=== PATIENT | female | born 1935 | race Caucasian/White ===

== ENCOUNTER 2017-10-20 15:22 | Inpatient (IN) | payer MEDICARE, OTHER, SELFPAY ==
[2017-10-20] VITALS (11 sets, daily range): BP systolic 179–243; BP diastolic 78–116; PULSE 64–92; RESP 14–21; TEMP 36.7–36.8; O2SAT 95–96; BMI 36.8; BMI 35.9
--- NOTE | 2017-10-20 15:53 | EKG12_ITS ---
Test Reason : Blood Pressure : / mmHG Vent. Rate : 065 BPM Atrial Rate : 065 BPM P-R Int : 158 ms QRS Dur : 082 ms QT Int : 400 ms P-R-T Axes : 062 022 009 degrees QTc Int : 416 ms Normal sinus rhythm Normal ECG Confirmed by IVANA SAUNDERS ([id number]), business editor JAZZ JOSHI ([id number] on 10/23/2017 2:27:54 PM Referred By: ALIE Confirmed By:IVANA SAUNDERS
--- NOTE | 2017-10-20 15:53 | CT_ITS ---
STUDY: CT BRAIN WITHOUT CONTRAST REASON FOR EXAM: Female, 82 years old. Hypertension. Headache. Visual changes. RADIATION DOSAGE (If Supplied By Facility): CTDIvol = ( 44.99 ) mGy, DLP = ( 779.24 ) mGycm TECHNIQUE: Transaxial CT imaging of the brain was performed without administration of intravenous contrast material. Individualized dose optimization techniques were used for this CT. COMPARISON: None. FINDINGS: Normal soft tissue structures. Normal calvarium. There is mild cerebral atrophy with widening of the extra-axial spaces and ventricular dilatation. There are areas of decreased attenuation within the white matter tracts of the supratentorial brain, consistent with microvascular disease changes. Normal basal ganglia and thalami. Normal brainstem. Normal cerebellum. There is no intracranial hemorrhage. There are no findings of an acute ischemic infarction. Normal visualized paranasal sinuses. CT/Brain/Head without Contrast IMPRESSION: Chronic involutional changes of the brain. Electronically Signed: Charlie Mustafa MD at 16:40 EDT , Service support ,
[2017-10-20 16:09] LABS: Absolute Lymphocyte Count 1.62 X10^3/ul (0.83-4.51); Absolute Neutrophil Count 3.1 X10^3/uL (2.0-7.7); Basophil# 0.03 X10^3/uL; Basophil% 0.5 % (0-1); Eosinophil# 0.18 X10^3/uL; Eosinophils% 3.2 % (0-5); Hematocrit 43.9 % (37-47); Hemoglobin 14.2 g/dl (12.0-15.0); Lymphocyte # 1.62 X10^3/ul (4.0); Lymphocyte % 29.1 % (19-41); Mean Corp Hgb Conc 32.3 g/gl (32-36); Mean Corpuscular Hgb 31.2 pg (27.0-32.0); Mean Corpuscular Volume 96.5 fL (81-99); Mean Platelet Vol. 11.9 fl (6.2-12.0); Monocyte# 0.59 X10^3/uL; Monocyte% 10.6 % (0-10); Neutrophil # 3.13 X10^3/uL (2.7-7.7); Neutrophil % 56.4 % (47-70); Platelet Count 167 K/mm3 (150-450); RBC Distribution Width SD 45.2 fl (35.1-43.9); Red Blood Count 4.55 M/mm3 (4.2-5.4); White Blood Count 5.6 K/mm3 (4.4-11.0)
[2017-10-20 16:13] LABS: POSITIVE COUNT NO; POSITIVE DIFFERENTIAL NO; POSITIVE MORPHOLOGY NO
[2017-10-20 16:17] LABS: Anion Gap 6 (5-15); BUN 25 mg/dL (7-18); BUN/Creat Ratio 25.2 RATIO (10-20); Chloride 107 mmol/L (98-107); Creatinine, Serum 0.99 mg/dL (0.55-1.02); EST Glomerular Filtration Rate 57 mL/min (>60); Est Glom Filt Rate - Afr Amer 69 mL/min (>60); Estimated Creatinine Clearance 34.05 ml/min; Glucose 90 mg/dL (74-106); Potassium 4.4 mmol/L (3.5-5.1); Sodium Level 141 mmol/L (136-145)
[2017-10-20] MEDS: hydrALAZINE 20 MG/ML Vial 10 MG IV ×2 (17:15→18:57)
[2017-10-20 18:17] LABS: Bacteria 0 SEEN /hpf (None Seen); Mucous, Urine 0 SEEN /hpf (<or=2+); Red Blood Cells-Urine 0 SEEN /hpf (0-5); White Blood Cells 0 SEEN /hpf (0-5)
[2017-10-20 18:21] LABS: Color, Urine Yellow (Yellow); Glucose, Dipstick Normal (Normal); Ketone-Dipstick Negative (Negative); Leukocyte Esterase-Dipstick Negative /ul (Negative); Nitrite-Dipstick Negative (Negative); Occult Blood-Urine Negative /ul (Negative); Protein-Dipstick Negative (Negative); Urine Bilirubin Dipstick Negative (Negative); Urine Clarity Clear (Clear); Urine Urobilinogen Normal (Normal)
[2017-10-20 18:28] LABS: Squamous Epithelial Cells - UA 0-5 SEEN /hpf (5-10)
--- NOTE | 2017-10-20 18:48 | ED.VISSUMM ---
- ER Visit Summary Date of Service: 10/20/17 Chief Complaint: Seeing colors and elevated blood pressure History of Present Illness: The patient is a 82 F who went and saw Dr. Paul Jameson for seeing colors. He his ocular exam was unremarkable and does not explain her symptom of seeing colors. He was concerned because she had elevated blood pressure with a systolic of 215 and diastolic of 116. She does have history of hypertension. She has never had problems with her pressure being this elevated. She does complain of discomfort over the right brow. Her vision is altered secondary to the fact that her pupils were dilated. She has regular ears. She has trouble speech or swallowing. She denies paresthesia, anesthesia or motor weakness. She has trouble with walking or balance. He denies any chest pain or pain in her neck or back. Review of systems is otherwise negative. Please read written note. Physical Examination: Initial blood pressure was 202/116. Repeat at 1558 was 268/107. Pupils are dilated and nonreactive. TMs normal. Posterior pharynx with midline uvula without erythema or exudate. Trachea is midline without stridor. There is no carotid bruit. Heart is regular. There is no appreciable murmur gallop or rub. Lungs are clear to auscultation. There is no chest wall discomfort. Abdomen is soft nontender without palpable cell mass without bruit. She has distal palpable pulses upper and lower extremity and they are symmetric. Patient is alert and oriented ?3. Motor is 5 over 5. Sensory is intact. DTRs are symmetric with no clonus or Babinski sign. Cranial 2 through 12 are intact. Cerebellar testing is normal. Gait was not observed. There is no truncal ataxia. Test Results: CBC was obtained unremarkable. BMP is marked for BUN 25. EKG sinus rhythm of 65 with no evidence of LVH. Emergency Department Course and Treatment: Workup was undertaken to evaluate for endorgan injury which included a BMP, UA EKG and CBC. She was administered 10 mg approximately. Her blood pressure remained elevated. She received another 10 mg of Apresoline IV push. Her pressure remains elevated. The hospitalist was called for admission to the hospital. Treatment Plan: Continued monitoring and administration of IV meds for hypertensive urgency Disposition: Admit PCU stepdown Impression: 1. Hypertensive urgency 2. Ocular symptoms suspect secondary to elevated blood pressure This note was generated with [employer] software. It may contain incorrect words, spelling, and punctuation that were not noted in review of the chart prior to signing ED Disposition - Plan for ED Patient: Chief Complaint: Hypertension Referrals: Joshua Maynard [Primary Care Provider] -
--- NOTE | 2017-10-20 19:32 | PCM.HP.STD ---
Problem List (1) Hypertensive emergency Status: Acute (2) Hypertension Status: Chronic History of Present Illness Date of Admission: 10/20/17 Chief Complaint: visual changes The patient is a 82 year old F presents with visual changes in her right eye. Patient describes intermittently seeing rainbow colors in the right lateral eye visual field. Denies any headache but saw her tire finisher who evaluated her and saw nothing to suggest an optic involvement contributing to her visual changes. He did note that patient's blood pressure was 1-200s and sent the patient to the emergency room. Emergency room patient was in hypertensive with a systolic into the 260s. Patient received 3 rounds of hydralazine and has improved her blood pressure 222/80. Patient has never had blood pressure is elevated but this is both before. Patient states that with her primary care provider that she will go there and blood pressure being in the 160s but then improved to 140s thereafter upon recheck. Patient states that she has been compliant with her losartan and took it this morning. [] Past Medical History Past Medical History (Chronic Problems): Chronic Problems Hypertension (Chronic) Allergies Sulfa (Sulfonamide Antibiotics) Allergy (Verified 10/20/17 15:28) Itching Home Medications: Ambulatory Orders Medication Instructions Recorded B Cmplx 4/Vit D3/C/FA/Zinc Ox 1 each PO DAILY 10/20/17 [Vital-D Rx Tablet] Losartan Potassium [Losartan 100 mg PO DAILY 10/20/17 Potassium] Meloxicam [Mobic] 15 mg PO DAILY 10/20/17 Lives: Alone Smoking Status: Never smoker Tobacco Use: Non-smoker Alcohol: None Drugs: None - *Family History Paternal History Items: Heart Disease Review of Systems Constitutional: Denies: Chills, Fever, Weight Change Eyes: Reports: Vision Change. Denies: Blurred vision, Double vision HEENT: Denies: Head Aches, Sinus Congestion, Sinus Drainage Cardiovascular: Denies: Chest Pain, Edema Respiratory: Denies: Cough, Shortness of breath at rest, Sputum production Gastrointestinal: Denies: Abdominal Pain, Nausea, Vomiting Genitourinary: Denies: Dysuria Musculoskeletal: Denies: Joint Pain, Joint Tenderness Skin: Denies: Rash, Wounds Neurological: Denies: Numbness, Tingling, Focal weakness Psychiatric: Denies: Anxiety, Depression Hematologic/ Lymphatic: Denies: Easy Bruising, Easy Bleeding, Hx of blood clot VTE Information - Inpt Only VTE Present on Admission: No VTE Pharm Prophylaxis ordered?: Yes Patient Problems: Active and Suspected Problems Hypertensive emergency (Acute) - Physical Exam General: Alert, Cooperative, No apparent distress, Well developed, Well nourished HEENT: Atraumatic, Normocephalic, - - Right pupil nonreactive the patient did have a dilated earlier today. Left pupil is reactive. Oral: Moist Mucosa, No Gingival or Mucosal Lesions/ Ulcerations Neck: No Nodes, Thyroid Normal Size and Texture Lungs: Clear to auscultation, Normal air movement, No rhonchi, No wheeze Cardiovascular: Regular rate, Regular Rhythm, Normal S1, Normal S2, No murmurs Abdomen: Bowel Sounds Present, Soft, Non Tender, Non-Distended, No Hepato-splenomegaly Extremities: No clubbing, No cyanosis, No edema, No Calf Tenderness Skin: No rashes, No breakdown Psych/Mental Status: Normal Affect, Appropriate Vital Signs Temp Pulse Resp BP Pulse Ox 36.8 C 80 16 202/80 H 96 10/20/17 15:26 10/20/17 19:06 10/20/17 19:06 10/20/17 19:06 10/20/17 19:06 Oxygen Delivery Method Room Air Weight: 91.3 kg Body Mass Index (BMI) 36.8 Laboratory Tests Past 24 Hrs 10/20/17 10/20/17 10/20/17 15:58 15:58 18:00 WBC 5.6 RBC 4.55 Hgb 14.2 Hct 43.9 MCV 96.5 MCH 31.2 MCHC 32.3 RDW 13.0 RDW Differential 45.2 H Plt Count 167 MPV 11.9 Immature Gran % (Auto) 0.200 Neut % (Auto) 56.4 Lymph % (Auto) 29.1 [place] % (Auto) 10.6 H Eos % (Auto) 3.2 Baso % (Auto) 0.5 Absolute Neuts (auto) 3.1 Absolute Lymphs (auto) 1.62 Total Counted Not Reportable Sodium 141 Potassium 4.4 Chloride 107 Carbon Dioxide 28.0 Anion Gap 6 BUN 25 H Creatinine 0.99 Estim Creat Clear Calc 34.05 Est GFR (MDRD) Af Amer 69 Est GFR (MDRD) Non-Af 57 L BUN/Creatinine Ratio 25.2 H Glucose 90 Calcium 9.0 Urine Color Yellow Urine Clarity Clear Urine pH 7.0 Ur Specific [place] 1.010 Urine Protein Negative Urine Glucose (UA) Normal Urine Ketones Negative Urine Occult Blood Negative Urine Nitrite Negative Urine Bilirubin Negative Urine Urobilinogen Normal Ur Leukocyte Esterase Negative Urine RBC 0 SEEN Urine WBC 0 SEEN Ur Squamous Epith Cells 0-5 SEEN Urine Bacteria 0 SEEN Urine Mucus 0 SEEN Assessment/Plan Active and Suspected Problems Hypertensive emergency (Acute) 1. Hypertensive emergency Overall improved. Patient was having endorgan damage with the patient's visual changes which are currently improved. Patient has some blurred vision right now but that is due to the fact that she had her right eye dilated. Continue with the patient is losartan but also add hydrochlorothiazide 25 mg to which patient will receive this evening. Patient will have hydralazine as needed. 2. DVT prophylaxis with Lovenox 3. Advanced care planning: Asked patient if the event of cardiac arrest if she would want CPR, she said she did. The patient had respiratory failure which she wanted to be intubated and ventilator, she stated that she would, in the event of dysphagia if she would want a PEG tube and artificial nutrition, patient stated that she would want that if necessary. Therefore, patient is full CODE STATUS. This note was generated with [employer] dictation software. It may contain incorrect words, spelling, and punctuation that were not noted in checking the note before signing. Code Visit Inpatient E&M: 67513 Init Hosp L3
--- NOTE | 2017-10-20 19:40 | HP.PCM_ITS ---
Problem List (1) Hypertensive emergency Status: Acute (2) Hypertension Status: Chronic History of Present Illness Date of Admission: 10/20/17 Chief Complaint: visual changes The patient is a 82 year old F presents with visual changes in her right eye. Patient describes intermittently seeing rainbow colors in the right lateral eye visual field. Denies any headache but saw her ultrasound coordinator who evaluated her and saw nothing to suggest an optic involvement contributing to her visual changes. He did note that patient's blood pressure was 1-200s and sent the patient to the emergency room. Emergency room patient was in hypertensive with a systolic into the 260s. Patient received 3 rounds of hydralazine and has improved her blood pressure 222/80. Patient has never had blood pressure is elevated but this is both before. Patient states that with her primary care provider that she will go there and blood pressure being in the 160s but then improved to 140s thereafter upon recheck. Patient states that she has been compliant with her losartan and took it this morning. [] Past Medical History Past Medical History (Chronic Problems): Chronic Problems Hypertension (Chronic) Allergies Sulfa (Sulfonamide Antibiotics) Allergy (Verified 10/20/17 15:28) Itching Home Medications: Ambulatory Orders Medication Instructions Recorded B Cmplx 4/Vit D3/C/FA/Zinc Ox 1 each PO DAILY 10/20/17 [Vital-D Rx Tablet] Losartan Potassium [Losartan 100 mg PO DAILY 10/20/17 Potassium] Meloxicam [Mobic] 15 mg PO DAILY 10/20/17 Lives: Alone Smoking Status: Never smoker Tobacco Use: Non-smoker Alcohol: None Drugs: None - *Family History Paternal History Items: Heart Disease Review of Systems Constitutional: Denies: Chills, Fever, Weight Change Eyes: Reports: Vision Change. Denies: Blurred vision, Double vision HEENT: Denies: Head Aches, Sinus Congestion, Sinus Drainage Cardiovascular: Denies: Chest Pain, Edema Respiratory: Denies: Cough, Shortness of breath at rest, Sputum production Gastrointestinal: Denies: Abdominal Pain, Nausea, Vomiting Genitourinary: Denies: Dysuria Musculoskeletal: Denies: Joint Pain, Joint Tenderness Skin: Denies: Rash, Wounds Neurological: Denies: Numbness, Tingling, Focal weakness Psychiatric: Denies: Anxiety, Depression Hematologic/ Lymphatic: Denies: Easy Bruising, Easy Bleeding, Hx of blood clot VTE Information - Inpt Only VTE Present on Admission: No VTE Pharm Prophylaxis ordered?: Yes Patient Problems: Active and Suspected Problems Hypertensive emergency (Acute) - Physical Exam General: Alert, Cooperative, No apparent distress, Well developed, Well nourished HEENT: Atraumatic, Normocephalic, - - Right pupil nonreactive the patient did have a dilated earlier today. Left pupil is reactive. Oral: Moist Mucosa, No Gingival or Mucosal Lesions/ Ulcerations Neck: No Nodes, Thyroid Normal Size and Texture Lungs: Clear to auscultation, Normal air movement, No rhonchi, No wheeze Cardiovascular: Regular rate, Regular Rhythm, Normal S1, Normal S2, No murmurs Abdomen: Bowel Sounds Present, Soft, Non Tender, Non-Distended, No Hepato- splenomegaly Extremities: No clubbing, No cyanosis, No edema, No Calf Tenderness Skin: No rashes, No breakdown Psych/Mental Status: Normal Affect, Appropriate Vital Signs Temp Pulse Resp BP Pulse Ox 36.8 C 80 16 202/80 H 96 10/20/17 15:26 10/20/17 19:06 10/20/17 19:06 10/20/17 19:06 10/20/17 19:06 Oxygen Delivery Method Room Air Weight: 91.3 kg Body Mass Index (BMI) 36.8 Laboratory Tests Past 24 Hrs 10/20/17 10/20/17 10/20/17 15:58 15:58 18:00 WBC 5.6 RBC 4.55 Hgb 14.2 Hct 43.9 MCV 96.5 MCH 31.2 MCHC 32.3 RDW 13.0 RDW Differential 45.2 H Plt Count 167 MPV 11.9 Immature Gran % (Auto) 0.200 Neut % (Auto) 56.4 Lymph % (Auto) 29.1 [place] % (Auto) 10.6 H Eos % (Auto) 3.2 Baso % (Auto) 0.5 Absolute Neuts (auto) 3.1 Absolute Lymphs (auto) 1.62 Total Counted Not Reportable Sodium 141 Potassium 4.4 Chloride 107 Carbon Dioxide 28.0 Anion Gap 6 BUN 25 H Creatinine 0.99 Estim Creat Clear Calc 34.05 Est GFR (MDRD) Af Amer 69 Est GFR (MDRD) Non-Af 57 L BUN/Creatinine Ratio 25.2 H Glucose 90 Calcium 9.0 Urine Color Yellow Urine Clarity Clear Urine pH 7.0 Ur Specific [place] 1.010 Urine Protein Negative Urine Glucose (UA) Normal Urine Ketones Negative Urine Occult Blood Negative Urine Nitrite Negative Urine Bilirubin Negative Urine Urobilinogen Normal Ur Leukocyte Esterase Negative Urine RBC 0 SEEN Urine WBC 0 SEEN Ur Squamous Epith Cells 0-5 SEEN Urine Bacteria 0 SEEN Urine Mucus 0 SEEN Assessment/Plan Active and Suspected Problems Hypertensive emergency (Acute) 1. Hypertensive emergency * Overall improved. Patient was having endorgan damage with the patient's visual changes which are currently improved. Patient has some blurred vision right now but that is due to the fact that she had her right eye dilated. * Continue with the patient is losartan but also add hydrochlorothiazide 25 mg to which patient will receive this evening. * Patient will have hydralazine as needed. 2. DVT prophylaxis with Lovenox 3. Advanced care planning: Asked patient if the event of cardiac arrest if she would want CPR, she said she did. The patient had respiratory failure which she wanted to be intubated and ventilator, she stated that she would, in the event of dysphagia if she would want a PEG tube and artificial nutrition, patient stated that she would want that if necessary. Therefore, patient is full CODE STATUS. This note was generated with [employer] dictation software. It may contain incorrect words, spelling, and punctuation that were not noted in checking the note before signing. Code Visit Inpatient E&M: 96817 Init Hosp L3
[2017-10-20] MEDS: hydroCHLOROthiazide 25 MG Tablet PO (21:02)
[2017-10-20] MEDS: 0.9% NaCl Peripheral Flush Adult/Peds IV (21:09)
[2017-10-20] MEDS: Acetaminophen 325 MG Tablet 650 MG PO (23:09)
[2017-10-21] VITALS (17 sets, daily range): BP systolic 138–199; BP diastolic 65–106; PULSE 65–95; RESP 16–18; TEMP 36.7–37.1; O2SAT 93–96
--- NOTE | 2017-10-21 05:42 | NURSING ---
This RN reviewed student charting. This RN agrees with all charting done by student Iva Gunderson.
[2017-10-21 07:04] LABS: Anion Gap 7 (5-15); BUN 20 mg/dL (7-18); BUN/Creat Ratio 22.3 RATIO (10-20); Calcium,Total 8.9 mg/dL (8.5-10.1); Chloride 107 mmol/L (98-107); EST Glomerular Filtration Rate 64 mL/min (>60); Est Glom Filt Rate - Afr Amer 77 mL/min (>60); Estimated Creatinine Clearance 37.46 ml/min; Glucose 97 mg/dL (74-106); Sodium Level 141 mmol/L (136-145)
[2017-10-21] MEDS: Losartan Potassium 100 MG Tablet PO (08:26)
[2017-10-21] MEDS: Folic Acid/Vitamin B Comp W-C 1 Capsule 1 CAP PO (08:26)
[2017-10-21] MEDS: hydroCHLOROthiazide 25 MG Tablet PO (08:26)
[2017-10-21] MEDS: Enoxaparin 40 MG/0.4 ML Syringe SC (08:26)
[2017-10-21] MEDS: Acetaminophen 325 MG Tablet 650 MG PO ×2 (08:30→21:48)
[2017-10-21] MEDS: hydrALAZINE 20 MG/ML Vial 10 MG IV ×2 (09:30→21:48)
[2017-10-21] MEDS: 0.9% NaCl Peripheral Flush Adult/Peds IV ×2 (09:34→21:49)
--- NOTE | 2017-10-21 09:47 | CASEMGMT ---
CHART REVIEW: MARK Strata: 1 ADM Dx: Hypertensive Emergency Assessment: Per physician report, The patient is a 82 year old F presents with visual changes in her right eye. Patient describes intermittently seeing rainbow colors in the right lateral eye visual field. Pt saw her theatre instructor who evaluated her and noted that patient's blood pressure was systolic 200's. The patient was referred to [facility] ED and evaluated; found to be hypertensive with a systolic into the 260's. The patient received 3 rounds of hydralazine and improved her blood pressure 222/80. Patient states that she has been compliant with her losartan and took it the day of evaluation. Treatment Plan: Continue Lorsartan and add HCTZ 25 mg; hydralazine PRN Transition Planning/Care Coordination: Patient lives alone, is independent, and has family support. The patient follows with Dr. Joshua Maynard, PCP. Anticipate no transition planning needs. RN CM will continue to follow hospital course and will provide CM intervention should needs arise. Disposition Plan: Home TSANA Salcido, RN-BC, CCM
--- NOTE | 2017-10-21 10:34 | PCM.PROGNOTE ---
Patient Problems: Active and Suspected Problems Hypertensive urgency (Acute) Subjective: Chief complaint: Follow-up after admission for hypertensive urgency. Patient seen and examined. No acute events overnight. This morning, she feels better and she has no more headache or vision changes. Later this morning, I went back to see the patient the chief complaint of headache. She has no more vision changes. Her blood pressure was elevated again up to 190 systolic. Her other vital signs were stable. - Physical Exam General: Alert, Oriented x3, Cooperative, No apparent distress HEENT: Atraumatic, PERRLA, EOMI Oral: Moist Mucosa, No Gingival or Mucosal Lesions/ Ulcerations Neck: Supple, No JVD, Negative Carotid Bruits, Trachea Midline, Thyroid Normal Size and Texture Lungs: Clear to auscultation, Normal air movement, No rhonchi, No wheeze, No rales, Diminished Cardiovascular: Regular rate, Regular Rhythm, Normal S1, Normal S2, No murmurs Abdomen: Bowel Sounds Present, Soft, Non Tender, Non-Distended, No Hepato-splenomegaly Extremities: No clubbing, No cyanosis, No edema Skin: No rashes, No breakdown Lymphatic: No Cervical, Supraclavicular, or Inguinal Adenopathy Neurological: Cranial nerves II-XII grossly intact, Motor Exam 5/5 strength throughout Psych/Mental Status: Normal Affect, Appropriate, Alert and oriented to time, place, person, mood and affect Vital Signs Temp Pulse Resp BP Pulse Ox 98.4 F 86 18 143/65 H 94 10/21/17 10:31 10/21/17 10:31 10/21/17 10:31 10/21/17 10:31 10/21/17 10:31 Oxygen Delivery Method Room Air Weight: 196 lb 6.91 oz Body Mass Index (BMI) 35.9 Intake and Output for Last 24 Hours 10/19/17 10/20/17 10/21/17 23:59 23:59 23:59 Intake Total 340 / 340 Balance 340 / 340 Laboratory Tests Past 24 Hrs 10/20/17 10/20/17 10/21/17 21:16 23:09 02:42 Sodium Potassium Chloride Carbon Dioxide Anion Gap BUN Creatinine Estim Creat Clear Calc Est GFR (MDRD) Af Amer Est GFR (MDRD) Non-Af BUN/Creatinine Ratio Glucose Calcium Troponin I 0.04 0.05 0.06 10/21/17 06:10 Sodium 141 Potassium 4.0 Chloride 107 Carbon Dioxide 27.0 Anion Gap 7 BUN 20 H Creatinine 0.90 Estim Creat Clear Calc 37.46 Est GFR (MDRD) Af Amer 77 Est GFR (MDRD) Non-Af 64 BUN/Creatinine Ratio 22.3 H Glucose 97 Calcium 8.9 Troponin I Clinical Impression(s) from Imaging Studies Brain CT 10/20/17 15:53 IMPRESSION: Chronic involutional changes of the brain. Electronically Signed: Charlie Mustafa MD at 16:40 EDT , Service support , Medical Necessity - Tobacco Use Smoking Status: Never smoker Tobacco Use: Non-smoker Assessment/Plan Active and Suspected Problems Hypertensive urgency (Acute) This is an 82 years old female patient presented to the emergency room because of headache and vision changes, and she was found to have highly elevated blood pressure consistent with hypertensive urgency and there was no evidence of acute end organ damage such as acute stroke, DE, encephalopathy or acute kidney injury. #1 hypertensive urgency: Patient has been on losartan for at least 4-5 years. Usually, blood pressure is under reasonable control but not too high as during this admission. On admission, maximum blood pressure was 243/102. This morning, her pressure came down to around 150-160 systolic and the symptoms improved. She has no more headache or vision. Later this morning, her blood pressure started to go again and it was up to 199/91. She complains of headache again but no vision changes. CT scan brain showed no acute infarction or hemorrhage. EKG revealed normal sinus rhythm without evidence of acute ischemic changes. Troponin are negative. Her routine blood work was unremarkable, kidney function is normal. At this time, she is on losartan and HCTZ. She is on IV hydralazine as needed. Plan: Change HCTZ to 12.5 mg p.o. daily, start Norvasc 10 mg p.o. daily, continue losartan and IV hydralazine as needed. #2 hypertension: Blood pressure was elevated, has been fluctuating up and down. Plan as above. #3 DVT prophylaxis: Subcu Lovenox. This note was generated with [employer] software. It may contain incorrect words, spelling, and punctuation that were not noted in checking the note before signing. Code Visit Inpatient E&M: 84808 Subs Hosp L2
--- NOTE | 2017-10-21 10:37 | PN_ITS ---
Patient Problems: Active and Suspected Problems Hypertensive urgency (Acute) Subjective: Chief complaint: Follow-up after admission for hypertensive urgency. Patient seen and examined. No acute events overnight. This morning, she feels better and she has no more headache or vision changes. Later this morning, I went back to see the patient the chief complaint of headache. She has no more vision changes. Her blood pressure was elevated again up to 190 systolic. Her other vital signs were stable. - Physical Exam General: Alert, Oriented x3, Cooperative, No apparent distress HEENT: Atraumatic, PERRLA, EOMI Oral: Moist Mucosa, No Gingival or Mucosal Lesions/ Ulcerations Neck: Supple, No JVD, Negative Carotid Bruits, Trachea Midline, Thyroid Normal Size and Texture Lungs: Clear to auscultation, Normal air movement, No rhonchi, No wheeze, No rales, Diminished Cardiovascular: Regular rate, Regular Rhythm, Normal S1, Normal S2, No murmurs Abdomen: Bowel Sounds Present, Soft, Non Tender, Non-Distended, No Hepato- splenomegaly Extremities: No clubbing, No cyanosis, No edema Skin: No rashes, No breakdown Lymphatic: No Cervical, Supraclavicular, or Inguinal Adenopathy Neurological: Cranial nerves II-XII grossly intact, Motor Exam 5/5 strength throughout Psych/Mental Status: Normal Affect, Appropriate, Alert and oriented to time, place, person, mood and affect Vital Signs Temp Pulse Resp BP Pulse Ox 98.4 F 86 18 143/65 H 94 10/21/17 10:31 10/21/17 10:31 10/21/17 10:31 10/21/17 10:31 10/21/17 10:31 Oxygen Delivery Method Room Air Weight: 196 lb 6.91 oz Body Mass Index (BMI) 35.9 Intake and Output for Last 24 Hours 10/19/17 10/20/17 10/21/17 23:59 23:59 23:59 Intake Total 340 / 340 Balance 340 / 340 Laboratory Tests Past 24 Hrs 10/20/17 10/20/17 10/21/17 21:16 23:09 02:42 Sodium Potassium Chloride Carbon Dioxide Anion Gap BUN Creatinine Estim Creat Clear Calc Est GFR (MDRD) Af Amer Est GFR (MDRD) Non-Af BUN/Creatinine Ratio Glucose Calcium Troponin I 0.04 0.05 0.06 10/21/17 06:10 Sodium 141 Potassium 4.0 Chloride 107 Carbon Dioxide 27.0 Anion Gap 7 BUN 20 H Creatinine 0.90 Estim Creat Clear Calc 37.46 Est GFR (MDRD) Af Amer 77 Est GFR (MDRD) Non-Af 64 BUN/Creatinine Ratio 22.3 H Glucose 97 Calcium 8.9 Troponin I Clinical Impression(s) from Imaging Studies Brain CT 10/20/17 15:53 IMPRESSION: Chronic involutional changes of the brain. Electronically Signed: Charlie Mustafa MD at 16:40 EDT , Service support , Medical Necessity - Tobacco Use Smoking Status: Never smoker Tobacco Use: Non-smoker Assessment/Plan Active and Suspected Problems Hypertensive urgency (Acute) This is an 82 years old female patient presented to the emergency room because of headache and vision changes, and she was found to have highly elevated blood pressure consistent with hypertensive urgency and there was no evidence of acute end organ damage such as acute stroke, [place], encephalopathy or acute kidney injury. #1 hypertensive urgency: Patient has been on losartan for at least 4-5 years. Usually, blood pressure is under reasonable control but not too high as during this admission. On admission, maximum blood pressure was 243/102. This morning , her pressure came down to around 150-160 systolic and the symptoms improved. She has no more headache or vision. Later this morning, her blood pressure started to go again and it was up to 199/91. She complains of headache again but no vision changes. CT scan brain showed no acute infarction or hemorrhage. EKG revealed normal sinus rhythm without evidence of acute ischemic changes. Troponin are negative. Her routine blood work was unremarkable, kidney function is normal. At this time, she is on losartan and HCTZ. She is on IV hydralazine as needed. Plan: Change HCTZ to 12.5 mg p.o. daily, start Norvasc 10 mg p.o. daily, continue losartan and IV hydralazine as needed. #2 hypertension: Blood pressure was elevated, has been fluctuating up and down. Plan as above. #3 DVT prophylaxis: Subcu Lovenox. This note was generated with [employer]ation software. It may contain incorrect words, spelling, and punctuation that were not noted in checking the note before signing. Code Visit Inpatient E&M: 99010 Subs Hosp L2
[2017-10-21] MEDS: amLODIPine 10 MG Tablet PO (11:28)
[2017-10-22 03:00] VITALS: PULSE 76
[2017-10-22 04:15] VITALS: BP 154/76; PULSE 81; RESP 18; TEMP 36.8; O2SAT 93
[2017-10-22 06:54] VITALS: PULSE 71
--- NOTE | 2017-10-22 08:33 | PCM.DC ---
- Discharge Diagnoses Current Active Problems: Current Active and Chronic Problems Hypertensive urgency (Acute) Hypertension (Chronic) You will use the following diet at home:: Cardiac Your food should be the consistency of: Regular Discharge Activity: Return to Normal Activity Weight Bearing Status: Weight bearing as tolerated Call your doctor if you observe: Fever of 101 or Higher, Shortness of breath, Dizziness, Fainting spells, Swelling in the ankles, Chest pain, Increased palpitations (irregular heartbeat), Uncontrolled pain Instructions: Controlling High Blood Pressure, Taking Your Blood Pressure, Taking Amlodipine, Taking a Diuretic Allergies/Adverse Reactions: Allergies Sulfa (Sulfonamide Antibiotics) Allergy (Verified 10/20/17 15:28) Itching Medications to take at Discharge B Cmplx 4/Vit D3/C/FA/Zinc Ox [Vital-D Rx Tablet] 1 each PO DAILY 10/20/17 Losartan Potassium 100 mg PO DAILY 10/20/17 Meloxicam [Mobic] 15 mg PO DAILY 10/20/17 Amlodipine [Norvasc] 10 mg PO DAILY #30 tab 10/22/17 Hydrochlorothiazide 12.5 mg PO DAILY #30 cap 10/22/17 The following prescriptions were given: Amlodipine [Norvasc] 10 mg PO DAILY #30 tab Hydrochlorothiazide 12.5 mg PO DAILY #30 cap Primary Care Physician: Joshua Maynard [Primary Care Provider] - Please follow up with your Primary Care Physician in: 1 week.
[2017-10-22 09:25] VITALS: BP 159/85; PULSE 89; RESP 16; TEMP 36.8; O2SAT 93
[2017-10-22] MEDS: amLODIPine 10 MG Tablet PO (09:32)
[2017-10-22] MEDS: Losartan Potassium 100 MG Tablet PO (09:32)
[2017-10-22] MEDS: Enoxaparin 40 MG/0.4 ML Syringe SC (09:32)
[2017-10-22] MEDS: Folic Acid/Vitamin B Comp W-C 1 Capsule 1 CAP PO (09:32)
[2017-10-22] MEDS: HYDROCHLOROTHIAZIDE 12.5 MG CAPSULE PO (09:33)
--- NOTE | 2017-10-22 15:25 | PCM.DC.SUM ---
Discharge Date and Diagnosis - Problem List Patient Problems: Active and Suspected Problems Hypertensive urgency (Acute) Date of Admission: 10/20/17 Date of Discharge: 10/22/17 - Primary Discharge Diagnosis Active and Suspected Problems Hypertensive urgency (Acute) - Secondary Discharge Diagnosis Chronic Problems Hypertension (Chronic) Hospital Course and Treatment Imaging Results: Clinical Impression(s) from Imaging Studies Brain CT 10/20/17 15:53 IMPRESSION: Chronic involutional changes of the brain. Electronically Signed: Charlie Mustafa MD at 16:40 EDT , Service support , Operations: None Procedures: EKG Summary of Care Provided: Patient seen and examined on the day of discharge and appeared to be stable to be discharged home. She denies any more complaints. No headache or vision changes. Blood pressure under better control, other vital signs are stable. - Physical Exam General: Alert, Oriented x3, Cooperative, No apparent distress. HEENT: Atraumatic, PERRLA, EOMI. Neck: Supple, No JVD, Negative Carotid Bruits, Trachea Midline, Thyroid Normal. Lungs: Clear to auscultation, Normal air movement, No rhonchi, No wheeze, No rales. Cardiovascular: Regular rate, Regular Rhythm, Normal S1, Normal S2, PMI Normal. Abdomen: Bowel Sounds Present, Soft, Non Tender, Non-Distended, No Hepato-splenomegaly. Extremities: No clubbing, No cyanosis, No edema Skin: No rashes, No breakdown Neurological: Neuro grossly intact Hospital course: The patient is a 82 year old F admitted to the emergency room because of headache and vision changes and she was found to have hypertensive urgency. On admission, her blood pressure was as high as 243/102. There was no evidence of acute end organ damage. CT scan brain showed no acute stroke or hemorrhage. EKG revealed normal sinus rhythm without acute ischemic changes. Troponin was negative. Routine blood work was unremarkable. Kidney function was normal. She was admitted and treated with IV hydralazine as needed, continued on losartan and started on Norvasc and hydrochlorthiazide. Her blood pressure did improve and it came down to around 150 systolic. She has normal symptoms, normal headache or vision changes. Patient discharged home in a stable medical condition, discharged on losartan same dose before admission, started on Norvasc 10 mg p.o. daily, HCTZ 12.5 mg p.o. daily, Maria Dolores recommended to keep close eye on her blood pressure, check her blood pressure twice a day and follow-up with PCP in 1 week. Discharge Activity: Return to Normal Activity Weight Bearing Status: Weight bearing as tolerated Call your doctor if you observe: Fever of 101 or Higher, Shortness of breath, Dizziness, Fainting spells, Swelling in the ankles, Chest pain, Increased palpitations (irregular heartbeat), Uncontrolled pain Home Medications: Medications to take at Discharge B Cmplx 4/Vit D3/C/FA/Zinc Ox [Vital-D Rx Tablet] 1 each PO DAILY 10/20/17 Losartan Potassium 100 mg PO DAILY 10/20/17 Meloxicam [Mobic] 15 mg PO DAILY 10/20/17 Amlodipine [Norvasc] 10 mg PO DAILY #30 tab 10/22/17 Hydrochlorothiazide 12.5 mg PO DAILY #30 cap 10/22/17 Following Prescrptions Were Given to Patient: Amlodipine [Norvasc] 10 mg PO DAILY #30 tab Hydrochlorothiazide 12.5 mg PO DAILY #30 cap Primary Care Physician: Joshua Maynard [Primary Care Provider] - Please follow up with your Primary Care Physician in: 1 week. Please Follow Up With: Joshua Maynard Patient Instructions: Controlling High Blood Pressure, Taking a Diuretic, Taking Amlodipine, Taking Your Blood Pressure Disposition: Home Minutes spent on discharge:: 26 Patient Condition:: Stable Medical Necessity - Tobacco Use Smoking Status: Never smoker Tobacco Use: Non-smoker Meaningful Use Info Meaningful Use Diagnoses (Choose all that apply): None applicable Code Visit Inpatient E&M: 11664 Disch Hosp
--- NOTE | 2017-10-22 15:29 | DS.PCM_ITS ---
Discharge Date and Diagnosis - Problem List Patient Problems: Active and Suspected Problems Hypertensive urgency (Acute) Date of Admission: 10/20/17 Date of Discharge: 10/22/17 - Primary Discharge Diagnosis Active and Suspected Problems Hypertensive urgency (Acute) - Secondary Discharge Diagnosis Chronic Problems Hypertension (Chronic) Hospital Course and Treatment Imaging Results: Clinical Impression(s) from Imaging Studies Brain CT 10/20/17 15:53 IMPRESSION: Chronic involutional changes of the brain. Electronically Signed: Charlie Mustafa MD at 16:40 EDT , Service support , Operations: None Procedures: EKG Summary of Care Provided: Patient seen and examined on the day of discharge and appeared to be stable to be discharged home. She denies any more complaints. No headache or vision changes. Blood pressure under better control, other vital signs are stable. - Physical Exam General: Alert, Oriented x3, Cooperative, No apparent distress. HEENT: Atraumatic, PERRLA, EOMI. Neck: Supple, No JVD, Negative Carotid Bruits, Trachea Midline, Thyroid Normal. Lungs: Clear to auscultation, Normal air movement, No rhonchi, No wheeze, No rales. Cardiovascular: Regular rate, Regular Rhythm, Normal S1, Normal S2, PMI Normal. Abdomen: Bowel Sounds Present, Soft, Non Tender, Non-Distended, No Hepato- splenomegaly. Extremities: No clubbing, No cyanosis, No edema Skin: No rashes, No breakdown Neurological: Neuro grossly intact Hospital course: The patient is a 82 year old F admitted to the emergency room because of headache and vision changes and she was found to have hypertensive urgency. On admission, her blood pressure was as high as 243/102. There was no evidence of acute end organ damage. CT scan brain showed no acute stroke or hemorrhage. EKG revealed normal sinus rhythm without acute ischemic changes. Troponin was negative. Routine blood work was unremarkable. Kidney function was normal. She was admitted and treated with IV hydralazine as needed, continued on losartan and started on Norvasc and hydrochlorthiazide. Her blood pressure did improve and it came down to around 150 systolic. She has normal symptoms, normal headache or vision changes. Patient discharged home in a stable medical condition, discharged on losartan same dose before admission, started on Norvasc 10 mg p.o. daily, HCTZ 12.5 mg p.o. daily, Maria Dolores recommended to keep close eye on her blood pressure, check her blood pressure twice a day and follow -up with PCP in 1 week. Discharge Activity: Return to Normal Activity Weight Bearing Status: Weight bearing as tolerated Call your doctor if you observe: Fever of 101 or Higher, Shortness of breath, Dizziness, Fainting spells, Swelling in the ankles, Chest pain, Increased palpitations (irregular heartbeat), Uncontrolled pain Home Medications: Medications to take at Discharge B Cmplx 4/Vit D3/C/FA/Zinc Ox [Vital-D Rx Tablet] 1 each PO DAILY 10/20/17 Losartan Potassium 100 mg PO DAILY 10/20/17 Meloxicam [Mobic] 15 mg PO DAILY 10/20/17 Amlodipine [Norvasc] 10 mg PO DAILY #30 tab 10/22/17 Hydrochlorothiazide 12.5 mg PO DAILY #30 cap 10/22/17 Following Prescrptions Were Given to Patient: Amlodipine [Norvasc] 10 mg PO DAILY #30 tab Hydrochlorothiazide 12.5 mg PO DAILY #30 cap Primary Care Physician: Joshua Maynard [Primary Care Provider] - Please follow up with your Primary Care Physician in: 1 week. Please Follow Up With: Joshua Maynard Patient Instructions: Controlling High Blood Pressure, Taking a Diuretic, Taking Amlodipine, Taking Your Blood Pressure Disposition: Home Minutes spent on discharge:: 26 Patient Condition:: Stable Medical Necessity - Tobacco Use Smoking Status: Never smoker Tobacco Use: Non-smoker Meaningful Use Info Meaningful Use Diagnoses (Choose all that apply): None applicable Code Visit Inpatient E&M: 42007 Disch Hosp
== END 2017-10-22 10:50 | disposition home or self-care (01) | DRG 305 ==
LOC: ED 16:36 → PCU 20:06
PROVIDERS: Emergency Provider Emergency Medicine; Family Provider Family Medicine; PCP Family Medicine; Visit Provider Hospitalist
DX: I16.0 Hypertensive urgency (principal); R51 Headache; Z79.899 Other long term (current) drug therapy; I10 Essential (primary) hypertension
CPT/HCPCS: 36415; 70450; 80048; 81001; 84484; 85025; 93005; 99283; A4216

== ENCOUNTER → 2017-12-22 23:39 | Outpatient (CLI) | payer MEDICARE, OTHER, SELFPAY | PROVIDERS: Family Provider Family Medicine; PCP Family Medicine; Visit Provider Internal Medicine Cardiovascular Disease | DX: G47.10 Hypersomnia, unspecified (principal); G47.19 Other hypersomnia; R06.83 Snoring; I10 Essential (primary) hypertension; I34.0 Nonrheumatic mitral (valve) insufficiency; I35.0 Nonrheumatic aortic (valve) stenosis; I05.9 Rheumatic mitral valve disease, unspecified; I16.0 Hypertensive urgency | CPT/HCPCS: 95810 ==

== ENCOUNTER → 2017-12-24 09:59 | Outpatient (CLI) | payer MEDICARE, OTHER, SELFPAY ==
--- NOTE | 2017-12-24 10:05 | ECHOD_ITS ---
Reason For Study: Dyspnea/SOB Procedure This was a 2D Doppler, Color Flow transthoracic echocardiogram. Exam performed in department. Left Ventricle Normal size and thickness. The estimated ejection fraction is 65 %. Stage 1 diastolic dysfunction. No regional wall motion abnormalities noted. Right Ventricle Normal size and thickness. Normal systolic function. Atria Normal left atrium. Normal right atrium. Normal atrial septum. Bubble contrast study negative for right to left interatrial shunt. Mitral Valve Moderate diffuse mitral valve thickening. Severe mitral annular calcification extending into the posterior leaflet. Mild mitral valve stenosis. Peak transmitral valve gradient 8 mmHg. Mean transmitral valve gradient 2 mmHg. Trivial mitral valve insufficiency. Tricuspid Valve Normal tricuspid valve. Trivial tricuspid valve insufficiency. Right ventricular systolic pressure estimated to be 33 mmHg. Aortic Valve Trisinus/trileaflet aortic valve. Moderate diffuse aortic valve thickening. Mild aortic stenosis. Peak aortic valve gradient 25 mmHg. Mean aortic valve gradient 12 mmHg. Pulmonic Valve Normal pulmonic valve. Great Vessels Normal aortic root. Normal arch. Normal inferior vena cava. Inferior vena cava collapse with sniff. Pericardium/Pleural No pericardial effusion. Medication Performed a rapid injection of agitated mix of 9 cc saline and 1cc air to assess for atrial septal defect. MMode/2D Measurements & Calculations LVIDd: 4.2 cm IVSd: 1.1 cm LVOT diam: 2.0 cm LVIDs: 2.8 cm LVPWd: 0.98 cm LVOT area: 3.1 cm2 RVDd: 3.4 cm FS: 32.5 % Ao root diam: 3.2 cm LAV(MOD-bp): 53.9 ml LA A4 area: 15.6 cm2 LAV(MOD-bp) Indexed: 28.8 ml/m2 LAV(MOD-sp2): 62.1 ml LAV(MOD-sp4): 39.2 ml RA A4 area: 14.3 cm2 Time Measurements MV dec time: 0.27 sec Doppler Measurements & Calculations MV E max dhaval: 98.6 cm/sec Lat Peak E' Dhaval: 6.3 cm/sec Med Peak E' Dhaval: 4.2 cm/sec MV A max dhaval: 124.6 cm/sec E/E' lat: 15.6 E/E' med: 23.5 MV E/A: 0.79 MV V2 max: 138.2 cm/sec MV P1/2t max dhaval: 116.3 cm/sec Ao V2 max: 249.4 cm/sec MV max P.6 mmHg MV P1/2t: 122.9 msec Ao max P.9 mmHg MV V2 mean: 71.1 cm/sec MV dec slope: 277.0 cm/sec2 Ao V2 mean: 167.5 cm/sec MV mean P.4 mmHg MVA(P1/2t): 1.8 cm2 Ao mean P.3 mmHg MV V2 VTI: 52.1 cm Ao V2 VTI: 56.6 cm MVA(VTI): 1.6 cm2 FRANCISCO(I,D): 1.5 cm2 FRANCISCO(V,D): 1.5 cm2 LV V1 max: 117.2 cm/sec SV(LVOT): 82.3 ml PA V2 max: 77.6 cm/sec LV V1 max P.5 mmHg LV V1 mean P.7 mmHg LV V1 mean: 77.9 cm/sec LV V1 VTI: 26.5 cm TR max dhaval: 260.0 cm/sec TR max P.1 mmHg Interpretation Summary The estimated ejection fraction is 65 %. Stage 1 diastolic dysfunction. Bubble contrast study negative for right to left interatrial shunt. Trivial mitral valve insufficiency. Mild mitral valve stenosis. Trivial tricuspid valve insufficiency. Right ventricular systolic pressure estimated to be 33 mmHg. Mild aortic stenosis. There is no comparison study available. Ordering Physician: Graham Funes Referring Physician: Joshua Maynard Performed By: Mercedes Phelan RDCS, RVT
== END ==
PROVIDERS: Family Provider Family Medicine; PCP Family Medicine; Visit Provider Internal Medicine Cardiovascular Disease
DX: R06.83 Snoring (principal)
CPT/HCPCS: 93306; A4216

== ENCOUNTER → 2018-01-16 10:29 | Outpatient (CLI) | payer MEDICARE, OTHER, SELFPAY ==
--- NOTE | 2018-01-16 10:31 | STE_ITS ---
Reason For Study: HTN, Aortic Stenosis, SOB Stress Results Protocol: Modified Jay Protocol Maximum Predicted HR: 137 bpm Target HR: 116 bpm% Maximum Pred icted HR: 92 % DurationHeart Rate Stage (mm:ss) (bpm) BPCom ment Baseline 73 132/90 No Chest Pain Modified Jay Protocol Stage 0 3:00 11 4 156/84No Chest Pain; Mild Dyspnea Modified Jay Protocol Stage 1/2 1:30 12 6 / No Chest Pain; Moderate Dyspnea Recovery 70 128/86 No Chest Pain Stress Duration: 4:30 mm:ss Maximum Stress HR: 126 bpmM ETS: 3 Baseline Echocardiogram Findings The estimated ejection fraction is 65 %. Severe mitral annular calcification extending into the posterior leaflet. Stress Echo Wall motion Data Resting WMIntermediate WMStress WM Resting Wall Motion Wall Motion Stress No regional wall motion No regional wall motion abnormalities noted. abnormalities noted. EKG Data Normal intervals are noted. Interpretation Summary The estimated ejection fraction is 65 %. Normal, adequate, modified Jay treadmill echocardiogram. Negative for ischemia by EKG and echocardiographic criteria. No anginal symptoms noted. Rare PVCs during exercise. Below average exercise capacity for age. Appropriate blood pressure response to exercise. Final LVEF is 75%. Final RVSP at peak exercise is 39 mmHg. Test terminated due to dyspnea. Recommend clinical correlation or alternative mode of testing if coronary ischemia is strongly suspected. Ordering Physician: Graham Funes Referring Physician: Graham Funes Performed By: Kiko Dobbins RCS
== END ==
PROVIDERS: Family Provider Family Medicine; PCP Family Medicine; Visit Provider Internal Medicine Cardiovascular Disease
DX: I16.0 Hypertensive urgency (principal); I10 Essential (primary) hypertension; I35.0 Nonrheumatic aortic (valve) stenosis; R06.00 Dyspnea, unspecified
CPT/HCPCS: 93017; 93350

== ENCOUNTER → 2018-02-16 20:04 | Outpatient (CLI) | payer MEDICARE, OTHER, SELFPAY | PROVIDERS: Family Provider Family Medicine; PCP Family Medicine; Visit Provider Nurse Practitioner Acute Care | DX: G47.33 Obstructive sleep apnea (adult) (pediatric) (principal) | CPT/HCPCS: 95811 ==

== ENCOUNTER → 2019-04-02 | Outpatient (CLI) | payer MEDICARE, OTHER, SELFPAY ==
[2019-03-25 13:30] VITALS: BMI 36.3
[2019-04-02 09:15] LABS: AST(SGOT) 17 U/L (15-37); Alanine Aminotransfer ALT/SGPT 20 U/L (13-56); Albumin, Serum 3.9 g/dL (3.2-5.0); Alkaline Phosphatase 135 U/L (45-117); Bilirubin, Direct 0.12 mg/dL (0.00-0.30); Cholesterol 192 mg/dL (200); Globulin 3.2 g/dL (2.2-4.2); High Density Lipoprotein 51 mg/dL; Protein, Total 7.1 g/dL (6.4-8.2); Triglycerides 146 mg/dL; Very Low Density Lipoprotein 29 mg/dL (5-40)
== END | disposition home or self-care (01) ==
LOC: LAB 08:04
PROVIDERS: Family Provider Family Medicine; PCP Family Medicine; Referring Provider Internal Medicine Cardiovascular Disease; Visit Provider Internal Medicine Cardiovascular Disease
DX: I16.0 Hypertensive urgency (principal)
CPT/HCPCS: 36415; 80061; 80076

== ENCOUNTER → 2019-04-14 12:56 | Outpatient (CLI) | payer MEDICARE, OTHER, SELFPAY ==
[2019-03-25 13:30] VITALS: BMI 36.3
[2019-04-08 14:52] VITALS: BMI 36.6
--- NOTE | 2019-04-14 12:58 | ECHOD_ITS ---
Reason For Study: Valve Replacement Eval Procedure This was a 2D Doppler, Color Flow transthoracic echocardiogram. Exam performed in department. Left Ventricle Mild concentric left ventricular hypertrophy. The estimated ejection fraction is 75 %. Stage 1 diastolic dysfunction. No regional wall motion abnormalities noted. Right Ventricle Normal size and thickness. Normal systolic function. Atria The left atrium is severely enlarged. Normal right atrium. Normal atrial septum. Mitral Valve Mild diffuse mitral valve thickening. Severe mitral annular calcification extending into the posterior leaflet. Mild mitral valve stenosis. Mild (1+) mitral valve insufficiency. Tricuspid Valve Normal tricuspid valve. Mild (1+) tricuspid valve insufficiency. Right ventricular systolic pressure estimated to be 42 mmHg. Mild pulmonary hypertension. Aortic Valve Trisinus/trileaflet aortic valve. Moderate diffuse aortic valve thickening. Mild restriction of the aortic valve. Mild to moderate aortic stenosis. Peak aortic valve gradient 25 mmHg. Mean aortic valve gradient 13 mmHg. Calculated aortic valve area (continuity equation) is 1.5 cm2. Pulmonic Valve Normal pulmonic valve. Trivial pulmonic valve insufficiency. Great Vessels Calcified aortic root. Mild atherosclerosis of the aortic arch. Normal inferior vena cava. Inferior vena cava collapse with sniff. Pericardium/Pleural No pericardial effusion. MMode/2D Measurements & Calculations LVIDd: 4.3 cm IVSd: 1.4 cm LVOT diam: 2.0 cm LVIDs: 2.8 cm LVPWd: 1.1 cm LVOT area: 3.0 cm2 RVDd: 3.4 cm FS: 36.7 % Ao root diam: 3.0 cm LAV(MOD-bp): 93.4 ml LVAd ap4: 20.7 cm2 LAV(MOD-bp) Indexed: 48.8 ml/m2 EDV(MOD-sp4): 54.8 ml LAV(MOD-sp2): 82.8 ml EDV(sp4-el): 58.2 ml LAV(MOD-sp4): 101.7 ml LVAs ap4: 10.5 cm2 ESV(MOD-sp4): 17.6 ml ESV(sp4-el): 17.7 ml EF(MOD-sp4): 67.8 % EF(sp4-el): 69.5 % SV(MOD-sp4): 37.1 ml SV(sp4-el): 40.5 ml LA A4 area: 28.3 cm2 LA dimension(2D): 4.2 cm RA A4 area: 13.9 cm2 Time Measurements MV dec time: 0.19 sec Doppler Measurements & Calculations MV E max dhaval: 104.6 cm/sec Lat Peak E' Dhaval: 3.7 cm/sec Med Peak E' Dhaval: 4.0 cm/sec MV A max dhaval: 126.2 cm/sec E/E' lat: 27.9 E/E' med: 26.1 MV E/A: 0.83 MV V2 max: 150.2 cm/sec MV P1/2t max dhaval: 125.6 cm/sec Ao V2 max: 249.1 cm/sec MV max P.0 mmHg MV P1/2t: 97.6 msec Ao max P.8 mmHg MV V2 mean: 79.7 cm/sec Ao V2 mean: 171.9 cm/sec MV mean P.1 mmHg MV dec slope: 377.2 cm/sec2 Ao mean P.9 mmHg MV V2 VTI: 49.6 cm MVA(P1/2t): 2.3 cm2 Ao V2 VTI: 57.9 cm MVA(VTI): 1.8 cm2 FRANCISCO(I,D): 1.5 cm2 FRANCISCO(V,D): 1.5 cm2 LV V1 max: 123.1 cm/sec SV(LVOT): 87.2 ml PA V2 max: 82.8 cm/sec LV V1 max P.1 mmHg LV V1 mean P.2 mmHg LV V1 mean: 84.5 cm/sec LV V1 VTI: 29.0 cm TR max dhaval: 301.4 cm/sec TR max P.3 mmHg Interpretation Summary Mild concentric left ventricular hypertrophy. The estimated ejection fraction is 75 %. Stage 1 diastolic dysfunction. The left atrium is severely enlarged. Mild (1+) mitral valve insufficiency. Mild mitral valve stenosis. Mild (1+) tricuspid valve insufficiency. Right ventricular systolic pressure estimated to be 42 mmHg. Mild pulmonary hypertension. Mild to moderate aortic stenosis. Compared to echo report dated 12/24/2017, LV function has remained the same, RVSP has increased from 33 to 42 mm Hg. Ordering Physician: Graham Funes Referring Physician: Joshua Maynard Performed By: Mercedes Phelan RDCS, RVT
== END ==
PROVIDERS: Family Provider Family Medicine; PCP Family Medicine; Referring Provider Internal Medicine Cardiovascular Disease; Visit Provider Internal Medicine Cardiovascular Disease
DX: G47.33 Obstructive sleep apnea (adult) (pediatric) (principal); I16.0 Hypertensive urgency; I35.0 Nonrheumatic aortic (valve) stenosis; I05.9 Rheumatic mitral valve disease, unspecified; I34.0 Nonrheumatic mitral (valve) insufficiency
CPT/HCPCS: 93306

== ENCOUNTER → 2019-04-23 11:48 | Outpatient (CLI) | payer MEDICARE, OTHER, SELFPAY ==
[2019-04-14 15:50] VITALS: BMI 36.6
[2019-04-23 13:53] LABS: Anion Gap 9 (5-15); BUN 73 mg/dL (7-18); BUN/Creat Ratio 37.6 RATIO (10-20); Calcium,Total 8.9 mg/dL (8.5-10.1); Chloride 108 mmol/L (98-107); Creatinine, Serum 1.94 mg/dL (0.55-1.02); EST Glomerular Filtration Rate 26 mL/min (>60); Est Glom Filt Rate - Afr Amer 32 mL/min (>60); Glucose 81 mg/dL (74-106); Potassium 5.1 mmol/L (3.5-5.1); Sodium Level 142 mmol/L (136-145)
== END ==
PROVIDERS: Family Provider Family Medicine; PCP Family Medicine; Referring Provider Nurse Practitioner Family; Visit Provider Nurse Practitioner Family
DX: I10 Essential (primary) hypertension (principal)
CPT/HCPCS: 36415; 80048

== ENCOUNTER → 2019-05-03 11:43 | Outpatient (CLI) | payer MEDICARE, OTHER, SELFPAY ==
[2019-04-14 15:50] VITALS: BMI 36.6
[2019-05-03 12:30] LABS: Absolute Lymphocyte Count 1.27 X10^3/uL (0.83-4.51); Absolute Neutrophil Count 3.7 X10^3/uL (2.0-7.7); Basophil# 0.06 X10^3/uL; Eosinophil# 0.17 X10^3/uL; Eosinophils% 2.9 % (0-5); Hematocrit 39.2 % (37-47); Hemoglobin 12.4 g/dL (12.0-15.0); Lymphocyte # 1.27 X10^3/ul (4.0); Lymphocyte % 21.7 % (19-41); Mean Corp Hgb Conc 31.6 g/dL (32-36); Mean Corpuscular Hgb 31.5 pg (27.0-32.0); Mean Corpuscular Volume 99.5 fL (81-99); Mean Platelet Vol. 10.7 fl (6.2-12.0); Monocyte# 0.59 X10^3/uL; Monocyte% 10.1 % (0-10); NRBC Flagged by Analyzer 0 % (0-5); Neutrophil # 3.72 X10^3/uL (2.7-7.7); Neutrophil % 63.8 % (47-70); Platelet Count 152 K/mm3 (150-450); RBC Distribution Width CV 11.9 % (11.6-14.6); RBC Distribution Width SD 43.8 fl (35.1-43.9); Red Blood Count 3.94 M/mm3 (4.2-5.4); White Blood Count 5.8 K/mm3 (4.4-11.0)
[2019-05-03 13:04] LABS: Vitamin B12 440 pg/mL (211-911)
[2019-05-03 13:07] LABS: Anion Gap 4 (5-15); BUN 39 mg/dL (7-18); BUN/Creat Ratio 24.8 RATIO (10-20); Calcium,Total 9.4 mg/dL (8.5-10.1); Chloride 109 mmol/L (98-107); Creatinine, Serum 1.57 mg/dL (0.55-1.02); EST Glomerular Filtration Rate 33 mL/min (>60); Est Glom Filt Rate - Afr Amer 40 mL/min (>60); Glucose 93 mg/dL (74-106); Potassium 4.7 mmol/L (3.5-5.1); Sodium Level 140 mmol/L (136-145); T4 Total, Thyroxin 7.4 ug/dL (4.8-13.9); Thyroid Stim Hormone (TSH) 1.86 uIU/mL (0.358-3.74)
== END ==
PROVIDERS: Family Provider Family Medicine; PCP Family Medicine; Referring Provider Nurse Practitioner Family; Visit Provider Nurse Practitioner Family
DX: R06.83 Snoring (principal); R53.83 Other fatigue; G47.10 Hypersomnia, unspecified; I10 Essential (primary) hypertension; I34.0 Nonrheumatic mitral (valve) insufficiency; I35.0 Nonrheumatic aortic (valve) stenosis
CPT/HCPCS: 36415; 80048; 82607; 84436; 84443; 85025

== ENCOUNTER → 2020-03-22 12:26 | Outpatient (CLI) | payer MEDICARE, SELFPAY ==
[2020-01-25 12:58] VITALS: BMI 37.3
--- NOTE | 2020-03-22 12:28 | STE_ITS ---
Reason For Study: Pre-Operative Stress Results Protocol: Dobutamine Stress Echo Maximum Predicted HR: 135 bpm Target HR: 115 bpm % Maximum Predicted HR: 87 % DurationHeart Rate Stage (mm:ss) (bpm) BP Comment Baseline 64 153/72No Chest Pain DSE 10 MCG 3:00 66 152/81No Chest Pain DSE 20 MCG 3:00 97 155/81No Chest Pain DSE 30 MCG 2:08 118 174/90No Chest Pain Recovery 85 166/85No Chest Pain Stress Duration: 8:08 mm:ss Maximum Stress HR: 118 bpm METS: 1 Baseline Echocardiogram Findings The estimated ejection fraction is 65 %. The left atrium is severely enlarged. Severe mitral annular calcification extending into the posterior leaflet. Stress Echo Wall motion Data Resting WM Intermediate WM Stress WM Resting Wall Motion Wall Motion Stress No regional wall motion No regional wall motion abnormalities noted. abnormalities noted. EKG Data The baseline ECG displays normal sinus rhythm. The patient was titrated from 10 mcg to a maximun of 30 mcg of dobutamine during the stress. The maximum heart rate attained was 120 beats per minute. This was 88% of maximum predicted heart rate. During dobutamine infusion, there were no ST or T wave changes noted to suggest ischemia. No clinical angina was noted. Doppler Measurements & Calculations Ao V2 max: 249.9 cm/sec Ao max P.0 mmHg Ao V2 mean: 171.9 cm/sec Ao mean P.1 mmHg Ao V2 VTI: 57.2 cm Interpretation Summary The estimated ejection fraction is 65 %. Normal, adequate, dobutamine echocardiogram. Negative for ischemia by EKG and echocardiographic criteria. No anginal symptoms noted. Rare PVC noted. Appropriate blood pressure response to dobutamine. Test terminated due to the attainment target heart rate. Final LVEF is 75%. Patient tolerated procedure well. No complications. Ordering Physician: Graham Funes Referring Physician: Joshua Maynard Performed By: Mercedes Phelan, JAMAL, RVT
== END ==
PROVIDERS: PCP Family Medicine; Referring Provider Internal Medicine Cardiovascular Disease; Visit Provider Internal Medicine Cardiovascular Disease
DX: Z01.810 Encounter for preprocedural cardiovascular examination (principal); I34.0 Nonrheumatic mitral (valve) insufficiency; I35.0 Nonrheumatic aortic (valve) stenosis
CPT/HCPCS: 93017; 93350; J7040; A4216

== ENCOUNTER → 2021-02-02 13:00 | Outpatient (CLI) | payer MEDICARE, SELFPAY ==
--- NOTE | 2021-02-02 13:03 | CDU_ITS ---
Reason For Study: Amaurosis fugax Rt. Velocities/BP Lt. Velocities/BP Prox CCA 74.7/18.6 cm/sec. Prox CCA 70.7/17.9 cm/sec. Mid CCA 70.8/18.6 cm/sec. Mid CCA 57.5/14.6 cm/sec. Dist CCA 57.8/12.1 cm/sec. Dist CCA 57.5/16.8 cm/sec. Prox ICA 72.1/16 cm/sec. Prox ICA 213/70.7 cm/sec. Mid ICA 83.8/23.9 cm/sec. Mid ICA 246.6/55.9 cm/sec. Dist ICA 90.4/27.8 cm/sec. Dist ICA 151/29.3 cm/sec. Rt. ICA/CCA = 1.28. Lt. ICA/CCA = 4.29. Prox ECA 61.7/5.6 cm/sec. Prox ECA 148.5/9.7 cm/sec. Rt. Vert. 54.2/13.5 cm/sec. Lt. Vert. 54.4/15.1 cm/sec. Right Extracranial There is homogeneous, smooth atherosclerotic plaque noted in the right common carotid artery. There is heterogeneous, irregular atherosclerotic plaque noted in the right internal carotid artery. There is homogeneous, smooth atherosclerotic plaque noted in the right external carotid artery. Antegrade flow is noted in the right vertebral artery. Left Extracranial There is homogeneous, smooth atherosclerotic plaque noted in the left common carotid artery. There is heterogeneous, irregular atherosclerotic plaque noted in the left internal carotid artery. There is heterogeneous, irregular atherosclerotic plaque noted in the left external carotid artery. Antegrade flow is noted in the left vertebral artery. Procedure Carotid Duplex 29575. This is a Carotid Duplex examination using B-mode, color flow and specral Doppler. Exam performed in department. Prelim to Brittany. VL/Carotid Duplex Ultrasound Interpretation Summary Mild irregular plaque at the proximal right internal carotid artery with less t sanchez 50% stenosis. Less than 50% stenosis right external carotid artery Irregular calcific plaque at the proximal left internal carotid artery with gre ater than 70% stenosis left internal carotid artery based upon peak systolic velocity. Howeve r, the area of increased velocity does not seem to correlate with the area of maximum plaque. Additional imaging, CTA carotids may be reasonable Less than 50% stenosis left external carotid artery Patent and antegrade vertebrals bilaterally Ordering Physician: Paul Jameson Referring Physician: Joshua Maynard MD Performed By: Kym Phillips RVT
== END ==
PROVIDERS: PCP Family Medicine; Referring Provider Ophthalmology; Visit Provider Ophthalmology
DX: G45.3 Amaurosis fugax (principal)
CPT/HCPCS: 93880

== ENCOUNTER → 2021-02-16 15:11 | Outpatient (CLI) | payer MEDICARE, SELFPAY ==
[2021-02-16 14:18] VITALS: BMI 36.3
[2021-02-16 16:34] LABS: Anion Gap 5 (5-15); BUN 41 mg/dL (7-18); BUN/Creat Ratio 28.7 RATIO (10-20); Calcium,Total 9.9 mg/dL (8.5-10.1); Chloride 105 mmol/L (98-107); Creatinine, Serum 1.43 mg/dL (0.55-1.02); EST Glomerular Filtration Rate 37 mL/min (>60); Est Glom Filt Rate - Afr Amer 45 mL/min (>60); Glucose 103 mg/dL (74-106); Potassium 4.9 mmol/L (3.5-5.1); Sodium Level 140 mmol/L (136-145)
[2021-02-16 23:37] LABS: Xtra Tube EP Lab EXTRA TUBE
== END ==
PROVIDERS: PCP Family Medicine; Referring Provider Surgery; Visit Provider Surgery
DX: Z01.818 Encounter for other preprocedural examination (principal)
CPT/HCPCS: 36415; 80048

== ENCOUNTER → 2021-02-19 11:00 | Outpatient (CLI) | payer MEDICARE, SELFPAY ==
[2021-02-16 14:18] VITALS: BMI 36.3
--- NOTE | 2021-02-19 11:02 | CT_ITS ---
STUDY: CTA NECK WITH CONTRAST REASON FOR EXAM: Female, 85 years old. Amaurosis, left eye RADIATION DOSAGE (If Supplied By Facility): CTDIvol = ( 19.62 ) mGy, DLP = ( 544.65 ) mGycm TECHNIQUE: CT angiography with multi-detector data acquisition was performed from the aortic arch to the skull base following intravenous administration of IV 100mL Isovue-370. MIP images were reconstructed from the axial data set. Post-processing of the angiographic images was performed, with multiplanar reformation and 3D reconstruction. Individualized dose optimization techniques were used for this CT. COMPARISON: None. FINDINGS: There is heterogeneous enlargement of the left lobe of the thyroid gland. Heterogeneous appearance of the right lobe of the thyroid gland as well. AORTIC ARCH: There is atherosclerotic calcific plaque formation of the aortic arch and great vessels arising from the aortic arch, without a hemodynamically significant stenosis. There is a normal origin of the brachiocephalic, left common carotid, and left subclavian arteries. RIGHT CAROTID ARTERIES: Normal right common carotid artery (CCA). Normal right common carotid bulb. There is mild atherosclerotic plaque formation of the origin of the right internal carotid artery with less than 50% cross sectional diameter stenosis. Normal visualized cervical portion of the right internal carotid artery. Normal origin of the right external carotid artery (ECA). LEFT CAROTID ARTERIES: Normal left common carotid artery (CCA). Normal left common carotid bulb. There is severe atherosclerotic plaque formation of the origin of the left internal carotid artery with a near complete occlusion. Normal visualized cervical portion of the left internal carotid artery. Normal origin of the left external carotid artery (ECA). VERTEBRAL ARTERIES: There is enhancement within the bilateral vertebral arteries with a small right vertebral artery, and a dominant left vertebral artery. CT/CTA Neck W/WO Contrast IMPRESSION: High-grade stenosis at the origin of the left carotid artery. Less than 50% narrowing at the origin of the right internal carotid artery. Dominant left vertebral artery. Electronically Signed: Scooter Gaston MD at 14:01 EDT , Service support ,
[2021-02-19 11:14] VITALS: BP 212/94; PULSE 71; RESP 16; O2SAT 98; BMI 36.3
[2021-02-19] MEDS: 0.9% Saline Lock 10 ML Syringe IV (11:34)
[2021-02-19 11:37] VITALS: BP 183/73; PULSE 63; RESP 16; O2SAT 97
== END ==
PROVIDERS: PCP Family Medicine; Referring Provider Surgery; Visit Provider Surgery
DX: G45.3 Amaurosis fugax (principal)
CPT/HCPCS: 70498; 99156; 99157; J7040; Q9967; A4216

== ENCOUNTER 2021-03-21 05:16 | Inpatient (IN) | payer MEDICARE, SELFPAY ==
[2021-02-21 05:33] VITALS: BMI 36.2
[2021-02-23 14:04] VITALS: BMI 36.2
--- NOTE | 2021-03-16 15:29 | EKG12_ITS ---
Test Reason : PRE-OP Blood Pressure : / mmHG Vent. Rate : 063 BPM Atrial Rate : 063 BPM P-R Int : 178 ms QRS Dur : 086 ms QT Int : 432 ms P-R-T Axes : 054 020 015 degrees QTc Int : 442 ms Normal sinus rhythm Low voltage QRS Borderline ECG Confirmed by LAWRENCE MEAN, JOHN ([id number]), production editor IRAM FIERRO ([id number]) on 03/20/2021 8:58:53 AM Referred By: RAMYA COREAS Confirmed By:JOHN BRAVO MD
[2021-03-16 15:37] LABS: Hematocrit 38.8 % (37-47); Hemoglobin 12.6 g/dL (12.0-15.0); Mean Corp Hgb Conc 32.5 g/dL (32-36); Mean Corpuscular Hgb 31.5 pg (27.0-32.0); Mean Platelet Vol. 11.4 fl (6.2-12.0); Platelet Count 176 K/mm3 (150-450); RBC Distribution Width SD 46.5 fl (35.1-43.9); White Blood Count 6.9 K/mm3 (4.4-11.0)
[2021-03-16 16:18] LABS: Anion Gap 2 (5-15); BUN 38 mg/dL (7-18); BUN/Creat Ratio 28.6 RATIO (10-20); Calcium,Total 9.6 mg/dL (8.5-10.1); Chloride 109 mmol/L (98-107); Creatinine, Serum 1.33 mg/dL (0.55-1.02); EST Glomerular Filtration Rate 40 mL/min (>60); Est Glom Filt Rate - Afr Amer 49 mL/min (>60); Glucose 90 mg/dL (74-106); Potassium 4.5 mmol/L (3.5-5.1); Sodium Level 141 mmol/L (136-145)
[2021-03-21] VITALS (32 sets, daily range): BP systolic 112–160; BP diastolic 42–80; PULSE 52–75; RESP 14–18; TEMP 35.8–37; O2SAT 91–100; BMI 37.0
--- NOTE | 2021-03-21 | PLAQ_PTH ---
PATIENT: Dee SOLORIO LOC: MS3 U#:[id number] AGE/SX: 85/F ROOM: PR317 RE03/21/[address]: Dr. Stanley Rios MD : 1935 BED: 1 DIS: 03/22/2021 SPEC #: [id number] RECD: 03/21/21 12:10 STATUS: JONY DAYSI #: [id number] OLGA LIDIA: 03/21/21 00:[address]: Stanley Rios DEPT: SURGICAL PATHOLOGY RECD BY: Kenny Mason ENTERED: 03/21/21 12:10 SP TYPE: PLAQUE OTHR DR: Dr. Joshua Maynard MD Tissues: PLAQUE Procedures: Decalcification bone/plaque Surgery Specimen Level III HEADER OPERATION: Carotid endarterectomy with patch angioplasty PRE-OP DIAGNOSIS: Amaurosis fugax of left eye, left carotid stenosis TISSUE SUBMITTED: Plaque MICROSCOPIC DIAGNOSIS Plaque, carotid endarterectomy: Atherosclerotic tissue with focal calcification (plaque). BUD:bridgette 03/26/2021 GROSS DESCRIPTION Received in fixative is one container labeled with the patient's name and designated plaque. The specimen consists of a Y-shaped piece of tubular lin-yellow, indurated tissue measuring 2.5 cm in length and up to 1 cm in diameter. The specimen cuts with a gritty sensation. Also present in the container is a piece of lin-yellow indurated tissue measuring 2 x 1 x 0.1 cm. The entire specimen is submitted in one cassette after decalcification. / BUD:bridgette 03/21/21 TC:5 CPT: 81407, 39088
[2021-03-21] MEDS: Lactated Ringers 1,000 ML 100 ML IV (05:35)
--- NOTE | 2021-03-21 05:55 | PCM.HP.BLA ---
History and Physical Date of Admission: 03/21/21 Intake Visit Reasons: Neck CTA- 02/19 Chief Complaint: F/u Neck CTA Network Services Project Manager Required: No Accompanied by: Daughter Is patient in pain?: No Allergies Sulfa (Sulfonamide Antibiotics) Allergy (Verified 02/21/21 13:54) Itching, rash lisinopril Adverse Reaction (Intermediate, Verified 02/21/21 13:54) cough Medications vitamin B complex 1 tab PO QDAY 11/21/17 [History Confirmed 02/21/21] acetaminophen 650 mg tablet,extended release 650 mg PO Q12H #1 tab 03/25/19 [Rx Confirmed 02/21/21] losartan 100 mg tablet 100 mg PO DAILY #90 tab 07/09/19 [Rx Confirmed 02/21/21] celecoxib 200 mg capsule 200 mg PO DAILY 01/25/20 [History Confirmed 02/21/21] amlodipine 5 mg tablet 5 mg PO DAILY #90 tab 01/30/21 [Rx Confirmed 02/21/21] carvedilol 6.25 mg tablet 6.25 mg PO BID #180 tab 01/30/21 [Rx Confirmed 02/21/21] aspirin 81 mg tablet,delayed release 81 mg PO DAILY 02/21/21 [History Confirmed 02/21/21] PFSH Medical History Acid reflux Amaurosis Amaurosis fugax of left eye Arthritis Back problem Essential (primary) hypertension Excessive daytime sleepiness Fatigue Hypersomnia, unspecified Hypertensive urgency Mitral valve annular calcification Nausea Nonrheumatic aortic (valve) stenosis Nonrheumatic mitral valve stenosis with insufficiency Obesity MARLENE (obstructive sleep apnea) Snoring Vertigo Surgical History History of bilateral cataract extraction (~2007) History of eye surgery (2017) History of left hip replacement (~03/2020) History of lumbar surgery (02/24/19) Family History Father Hypertension CAD (coronary artery disease) Carotid artery disease CVA (cerebral vascular accident) Mother Hypertension Social History Smoking Status: Never smoker second hand exposure: No alcohol intake: never substance use type: does not use caffeine: No what type of physical activity do you participate in: aerobics frequency: 3-4 times per week HPI HPI HPI: Dee SOLORIO, is a 85 F who presents to the office today for ongoing discussion regarding amaurosis fugax of her left eye and updated CTA of her carotids. My previous notes of February 16, 2021 are as follows. As of February 16, 2021 her BUN was 41 and creatinine 1.43 with an estimated GFR of 37 mm/min February 19, 2021 STUDY: CTA NECK WITH CONTRAST REASON FOR EXAM: Female, 85 years old. Amaurosis, left eye RADIATION DOSAGE (If Supplied By Facility): CTDIvol = ( 19.62 ) mGy, DLP = ( 544.65 ) mGycm TECHNIQUE: CT angiography with multi-detector data acquisition was performed from the aortic arch to the skull base following intravenous administration of IV 100mL Isovue-370. MIP images were reconstructed from the axial data set. Post-processing of the angiographic images was performed, with multiplanar reformation and 3D reconstruction. Individualized dose optimization techniques were used for this CT. COMPARISON: None. FINDINGS: There is heterogeneous enlargement of the left lobe of the thyroid gland. Heterogeneous appearance of the right lobe of the thyroid gland as well. AORTIC ARCH: There is atherosclerotic calcific plaque formation of the aortic arch and great vessels arising from the aortic arch, without a hemodynamically significant stenosis. There is a normal origin of the brachiocephalic, left common carotid, and left subclavian arteries. RIGHT CAROTID ARTERIES: Normal right common carotid artery (CCA). Normal right common carotid bulb. There is mild atherosclerotic plaque formation of the origin of the right internal carotid artery with less than 50% cross sectional diameter stenosis. Normal visualized cervical portion of the right internal carotid artery. Normal origin of the right external carotid artery (ECA). LEFT CAROTID ARTERIES: Normal left common carotid artery (CCA). Normal left common carotid bulb. There is severe atherosclerotic plaque formation of the origin of the left internal carotid artery with a near complete occlusion. Normal visualized cervical portion of the left internal carotid artery. Normal origin of the left external carotid artery (ECA). VERTEBRAL ARTERIES: There is enhancement within the bilateral vertebral arteries with a small right vertebral artery, and a dominant left vertebral artery. CT/CTA Neck W/WO Contrast IMPRESSION: High-grade stenosis at the origin of the left carotid artery. Less than 50% narrowing at the origin of the right internal carotid artery. Dominant left vertebral artery. Electronically Signed: Scooter Gaston MD at 14:01 EDT , Service support , Intake Visit Reasons: CAROTID STENOSIS/CAROTID DUPLEX @ [facility] Chief Complaint: Carotid stenosis Network Services Project Manager Required: No DME Vendor: [facility] Accompanied by: Daughter Is patient in pain?: No Allergies Sulfa (Sulfonamide Antibiotics) Allergy (Verified 02/16/21 14:22) Itching, rash lisinopril Adverse Reaction (Intermediate, Verified 02/16/21 14:22) cough Medications vitamin B complex 1 tab PO QDAY 11/21/17 [History Confirmed 02/16/21] acetaminophen 650 mg tablet,extended release 650 mg PO Q12H #1 tab 03/25/19 [Rx Confirmed 02/16/21] losartan 100 mg tablet 100 mg PO DAILY #90 tab 07/09/19 [Rx Confirmed 02/16/21] celecoxib 200 mg capsule 200 mg PO DAILY 01/25/20 [History Confirmed 02/16/21] amlodipine 5 mg tablet 5 mg PO DAILY #90 tab 01/30/21 [Rx Confirmed 02/16/21] carvedilol 6.25 mg tablet 6.25 mg PO BID #180 tab 01/30/21 [Rx Confirmed 02/16/21] [facility] Medical History (Updated 02/16/21 @ 14:39 by Steffi Porter) Acid reflux Amaurosis Amaurosis fugax of left eye Arthritis Back problem Essential (primary) hypertension Excessive daytime sleepiness Fatigue Hypersomnia, unspecified Hypertensive urgency Mitral valve annular calcification Nausea Nonrheumatic aortic (valve) stenosis Nonrheumatic mitral valve stenosis with insufficiency Obesity MARLENE (obstructive sleep apnea) Snoring Vertigo Surgical History (Updated 02/16/21 @ 14:15 by Belle Rios) History of bilateral cataract extraction (~2007) History of eye surgery (2017) History of left hip replacement (~03/2020) History of lumbar surgery (02/24/19) Family History (Updated 02/16/21 @ 14:15 by Belle Rios) Father Hypertension CAD (coronary artery disease) Carotid artery disease CVA (cerebral vascular accident) Mother Hypertension Social History (Updated 02/16/21 @ 14:18 by Belle Rios) Smoking Status: Never smoker second hand exposure: No alcohol intake: never substance use type: does not use caffeine: No what type of physical activity do you participate in: aerobics frequency: 3-4 times per week HPI HPI HPI: Dee SOLORIO, is a 85 F who presents to the office today for surgical consultation regarding extracranial cranial carotid artery occlusive disease. The patient is referred by Dr. Paul Jameson and a written copy of my surgical consult recommendations will return to him. She apparently has had some transient vision loss on more than one occasion in the left eye. There is concerned that she might have ocular migraines or hypertensive event. Findings do suggest however extracranial carotid artery occlusive disease on the left. She is not on a statin medication. On review the patient has several concerns. She complains about a spongy scalp but that has been going on parity for long time. She complains about vertigo nausea and vomiting but then also to that apparently is more of a long-term history. Apparently she had a 5-day episode of vertigo causing her to be at bedrest. Dr. Joshua Maynard is prescribed her meclizine to assist with that. She has had problems with malignant hypertension she states that she has been sent by Dr. Jameson to the emergency room but then on further clarification she thinks maybe that was 3 years ago. The feature that seems to be most current and most pertinent is this episode of temporary blurriness of the left eye. She thinks that she had a remote episode perhaps a couple years ago and then a more recent episode. She was seen by Dr. Paul Jameson and the carotid duplex imaging exam was requested. She was found to have greater than 70% stenosis of the left internal carotid which would correlate with her vision problems on the left. Her most recent stress echocardiogram was performed by Dr. Graham Funes March 22. Ejection fraction 65%. No acute findings. February 02, 2021 Reason For Study: Amaurosis fugax Rt. Velocities/BP Lt. Velocities/BP Prox CCA 74.7/18.6 cm/sec. Prox CCA 70.7/17.9 cm/sec. Mid CCA 70.8/18.6 cm/sec. Mid CCA 57.5/14.6 cm/sec. Dist CCA 57.8/12.1 cm/sec. Dist CCA 57.5/16.8 cm/sec. Prox ICA 72.1/16 cm/sec. Prox ICA 213/70.7 cm/sec. Mid ICA 83.8/23.9 cm/sec. Mid ICA 246.6/55.9 cm/sec. Dist ICA 90.4/27.8 cm/sec. Dist ICA 151/29.3 cm/sec. Rt. ICA/CCA = 1.28. Lt. ICA/CCA = 4.29. Prox ECA 61.7/5.6 cm/sec. Prox ECA 148.5/9.7 cm/sec. Rt. Vert. 54.2/13.5 cm/sec. Lt. Vert. 54.4/15.1 cm/sec. Right Extracranial There is homogeneous, smooth atherosclerotic plaque noted in the right common carotid artery. There is heterogeneous, irregular atherosclerotic plaque noted in the right internal carotid artery. There is homogeneous, smooth atherosclerotic plaque noted in the right external carotid artery. Antegrade flow is noted in the right vertebral artery. Left Extracranial There is homogeneous, smooth atherosclerotic plaque noted in the left common carotid artery. There is heterogeneous, irregular atherosclerotic plaque noted in the left internal carotid artery. There is heterogeneous, irregular atherosclerotic plaque noted in the left external carotid artery. Antegrade flow is noted in the left vertebral artery. Procedure Carotid Duplex 26288. This is a Carotid Duplex examination using B-mode, color flow and specral Doppler. Exam performed in department. Prelim to Brittany. VL/Carotid Duplex Ultrasound Interpretation Summary Mild irregular plaque at the proximal right internal carotid artery with less than 50% stenosis. Less than 50% stenosis right external carotid artery Irregular calcific plaque at the proximal left internal carotid artery with greater than 70% stenosis left internal carotid artery based upon peak systolic velocity. However, the area of increased velocity does not seem to correlate with the area of maximum plaque. Additional imaging, CTA carotids may be reasonable Less than 50% stenosis left external carotid artery Patent and antegrade vertebrals bilaterally Ordering Physician: Paul Jameson Referring Physician: Joshua Maynard MD Performed By: Kym Phillips RVT 02/02/21 1407 ROS General General: Yes fatigue; No weight change, appetite, colon cancer, breast cancer or weakness HEENT HEENT: No difficulty swallowing, eye injury, eye surgery, swollen glands or hoarseness Endo Endocrine: No thyroid disease, diabetes mellitus, thyroid cancer, Hair loss, heat intolerance or cold intolerance Skin Skin: No rash or changing moles Musc Musculoskeletal: Yes back problems and arthritis; No rheumatoid arthritis, gout or joint pain Cardio Cardiovascular: Yes murmur and high blood pressure; No pacemaker, heart disease, atrial fibrillation, heart attack, heart stent, palpitations, shortness of breat with exertion or chest pain Psych Psychiatric: No depression, anxiety or hearing voices Resp Respiratory: No shortness of breath, Yes sleep apnea, No cough, No COPD, No asthma, No emphysema and No wheezing Gastro Gastrointestinal: No abdominal pain, Yes nausea or vomiting, No diarrhea, No constipation, No blood in stool, Yes acid reflux, No hemorrhoids, No ulcers, No gallbladder problem and No black,tarry stools Valentin Hematologic: No blood thinners, No blood disorders, No bleeding, No anemia and No blood clots Neuro Neurologic: No weakness Exam Const General: cooperative, comfortable and no acute distress Nutritional Appearance: overweight Orientation: alert and awake [facility] Head: normal to inspection Eyes General: appearance normal, both eyes and all related structures Resp Effort & Inspection: normal respiratory effort Auscultation: clear to auscultation bilaterally Cardio Rate: regular rate Rhythm: regular rhythm Other: 3/6 systolic ejection murmur Bilateral radials 2+. Bilateral carotids 2+. 2/6 bruits bilateral carotids. GI Palpation: soft Auscultation: normal bowel sounds Other: Soft, nontender, not expansile, normal bowel sounds Skin General: no rashes or lesions noted Neuro Speech: speech normal Extrem General: no calf tenderness Psych Appearance: grossly normal Assessment and Plan Assessment and Plan (1) Amaurosis fugax of left eye: Status: Acute Orders: Orders: CTA Neck W/WO Contrast Today G45.3 Plan - Dr. Stanley Rios MD: 85-year-old female with a variety of symptoms. The symptom of greatest concern to me however is what would correlate well with amaurosis fugax of the left eye. She has greater than 70% stenosis of the left internal carotid based upon carotid duplex imaging. The head sponginess and her vertigo seem to be of other etiology. She does have a degree of chronic renal insufficiency. I recommend that we obtain updated BMP on her to reassess her renal function. If possible would like to proceed with a CTA of her carotids. We will plan on preoperative hydration with 500 cc of 0.9% normal saline. I have proposed for her the potential recommendation for left carotid endarterectomy with patch angioplasty. In an octogenarian carotid artery stenting carries increased risk of stroke. The patient's blood pressure today was relatively stable. Of course I am not able to detect whether she has episodes of paroxysmal malignant hypertension. I have recommended to her that she initiate a 81 mg aspirin. We will contact Dr. Joshua Maynard to see whether she would be a candidate to initiate a statin medication which would help stabilize her carotid plaque. As noted pending her laboratory we will proceed with a CTA of her carotids and have her return to the office for further consultation. At this time I have concerns that her left carotid is etiologic to her left eye amaurosis fugax. She has had an opportunity to ask and have questions answered. I appreciate the opportunity of assisting with her surgical care. We will proceed was noted. Copy: Dr. Paul Jameson and Dr. Joshua Rios M.D., F.A.C.S. Plan Details Other Orders: Orders: CTA Neck W/WO Contrast Today H54.7, I65.22 Basic Metabolic Profile (BMP) Today Z01.818 ROS General General: Yes fatigue; No weight change, appetite, colon cancer, breast cancer or weakness HEENT HEENT: No difficulty swallowing, eye injury, eye surgery, swollen glands or hoarseness Endo Endocrine: No thyroid disease, diabetes mellitus, thyroid cancer, Hair loss, heat intolerance or cold intolerance Skin Skin: No rash or changing moles Musc Musculoskeletal: Yes back problems and arthritis; No rheumatoid arthritis, gout or joint pain Cardio Cardiovascular: Yes murmur and high blood pressure; No pacemaker, heart disease, atrial fibrillation, heart attack, heart stent, palpitations, shortness of breat with exertion or chest pain Psych Psychiatric: No depression, anxiety or hearing voices Resp Respiratory: No shortness of breath, Yes sleep apnea, No cough, No COPD, No asthma, No emphysema and No wheezing Gastro Gastrointestinal: No abdominal pain, Yes nausea or vomiting, No diarrhea, No constipation, No blood in stool, Yes acid reflux, No hemorrhoids, No ulcers, No gallbladder problem and No black,tarry stools Valentin Hematologic: No blood thinners, No blood disorders, No bleeding, No anemia and No blood clots Neuro Neurologic: No weakness Assessment and Plan Assessment and Plan (1) Amaurosis fugax of left eye: Status: Acute (2) Carotid stenosis, left: Status: Acute Plan - Dr. Stanley Rios MD: 85-year-old female. She has now had 2 episodes of amaurosis fugax left eye. Carotid duplex imaging suggested greater than 70% stenosis on the left. A CTA of the neck was obtained at the [facility] on February 19, 2021 at my request. This demonstrated high-grade stenosis of the origin of the left internal carotid artery. On my review I would suspect that this is likely close to 80%. This that would make this a symptomatic high-grade lesion. Upon my first office visit with the patient she was initiated on a low-dose aspirin. We have reviewed her Celebrex therapy wondering whether this could possibly be curtailed. We are hoping she will be able to initiate a statin medication as well. The patient was accompanied by her daughter today. We extensively discussed treatment options. We discussed ongoing medical treatment with maximization of her blood pressure and antiplatelet agent and statin medication stabilize her plaque. She is however symptomatic with 2 previous episodes. Therefore I am offering her a left carotid endarterectomy with bovine patch angioplasty. Arterial line monitoring would be utilized. I would anticipate hopefully placing an intraoperative shunt. She is aware of technique, benefit, risk, alternatives. Absolutely no guarantees of success are being offered. The patient is very much aware that at age 85 she is at increased risk category for either medical or surgical treatment. She has had an opportunity to ask and have questions answered. Ideally she would be on a statin medication for at least a couple weeks preoperatively. We will schedule and proceed at her discretion. I appreciate the opportunity of assisting with her surgical care. Copy: Dr. Joshua Rios M.D., F.A.C.S. Coding Level of Care Code Off vis,est,level 2 Diagnoses Amaurosis fugax of left eye G45.3 Carotid stenosis, left I65.22 The patient was seen by Irene Connolly PA-C and her antihypertensive regimen was altered with an increase in her amlodipine. The patient otherwise remains medically stable Stanley Rios M.D., F.A.C.S.
--- NOTE | 2021-03-21 05:57 | PCM.DC ---
Discharge Instructions Diet Discharge Diet: Light diet - advance as tolerated Activity Discharge Activity: May Not Drive (For 5 to 7 days), May Not Shower (For 3 days) and May Take a Tub Bath Weight Bearing Status: Full weight bearing Dressing / Incision Call your doctor if your incision/area has: Continuous Slow Oozing, Sudden Increased Bleeding and Increased Pain/ Swelling Call your doctor if you observe: Fever of 101 or Higher Suture Line Care: Avoid Pulling/Pushing Change Dressing in: 1 day (You may apply a dry gauze cover dressing to your incision as needed to protect from clothing irritation. Change as needed) Remove Dressing in: 1 week (Leave your Steri-Strips in place for 1 week then you may remove) Follow Up Care Please Follow Up With: Stanley Rios MD When: Approximately 10 days. Please call [phone] to arrange for an appointment Test Results: You may shower starting on Friday. You may leave your left neck incision open or you may protect it with some gauze and tape if there is irritation from your clothing. Discharge Plan Admission Admit Date/Time: 03/21/21 05:16 Primary Reason for Your Visit: Symptomatic critical stenosis left internal carotid artery Attending Provider: Stanley Rios Primary Care Provider: Joshua Maynard Discharge Orders/Prescriptions Prescriptions: Continued losartan 100 mg tablet 100 mg PO DAILY Qty: 90 RF: 3 aspirin [Adult Low Dose Aspirin] 81 mg tablet,delayed release (DR/EC) 81 mg PO DAILY RF: 0 rosuvastatin 20 mg tablet 20 mg PO DAILY RF: 0 carvedilol 6.25 mg tablet 6.25 mg PO BID RF: 0 acetaminophen [Tylenol Arthritis Pain] 650 mg tablet extended release 650 mg PO Q12H RF: 0 amlodipine 10 mg tablet 10 mg PO DAILY RF: 0 Other Ambulatory Orders: 12 Lead EKG (Routine) Timeframe: [id number] Location: None Selected Ordered By: Dr. Stanley Rios Referrals / Follow Up: Joshua Maynard MD [Primary Care Provider] - Disposition Disposition (needs filled in before D/C Order can be placed): Home, Self Care
--- NOTE | 2021-03-21 06:28 | PCM.OPRPT ---
Problems Associated Problem List Diagnoses (1) Amaurosis fugax of left eye: (2) Carotid stenosis, left: Report of Operation Date of Procedure: 03/21/21 Pre-Operative Diagnosis: Amaurosis fugax left eye with critical stenosis left internal carotid artery Post-Operative Diagnosis: Same Surgery/Procedure Performed:: Right radial arterial line placement Left carotid endarterectomy with bovine patch angioplasty Ben Hdez [id number] Lot: [id number] PN: [id number] Expiry date: 08/29/25 Description of Surgical Findings:: Timeout informed consent was obtained at the bedside. Benson test performed demonstrating adequate right ulnar flow. The right wrist was prepped with Betadine. Under ultrasound guidance 1% lidocaine was instilled as local anesthetic. A total of 1 cc was used. Under ultrasound guidance an Arrow kit Angiocath was advanced into the right radial artery Salinger wire technique was utilized and the catheter was easily advanced. It was secured the skin with 3-0 silk and OpSite dressing followed by Tai wrap. Good waveform was obtained. Hand was viable at the completion. No apparent complication. The patient was subsequently taken to the operating room for planned definitive left carotid surgery. Timeout and informed consent was again obtained. The patient was taken to the operating room placed upon the table underwent general endotracheal intubation anesthesia. The left neck was sterilely prepped and draped. An oblique incision was made along the anterior border the sternocleidomastoid. Sharp dissection was carried down through the subcutaneous tissues. Sharp and blunt dissection was used to identify the common carotid carotid bulb internal and external carotid arteries. Dacron tape was placed around the internal carotid and a vessel loop around the external carotid and a Villa tie of 3-0 Vicryl around the superior thyroid and a Villa tie of Dacron around the common carotid. Weightbase the patient received 9000 units of heparin intravenously. 11 blade was used to make an arteriotomy which was extended with Villa scissors. After adequate circulating time peripheral vascular clamps were placed on the internal carotid common carotid external carotid. A #10 U S CI style shunt was placed. For cephalad end proximally. Time to the place the shunt was 3 minutes. An endarterectomy was formed with a layer of the external elastic lamina. The plaque was removed from the external carotid with an eversion technique. The plaque was carefully smoothed at the internal carotid. 3 tacking sutures of 7-0 Prolene were additionally used at that internal carotid. A bovine patch angioplasty performed with shape in the patch to form a 8 x 0.8 cm patch and using a 6-0 Prolene in a running technique. Prior to completion the vessel was irrigated. The shunt was removed and a patch angioplasty completed. Removal time was 2 minutes. Reestablishment of flow was achieved nicely. A single repair suture of 7-0 Prolene needed. Surgicel was briefly applied to assist with hemostasis which was achieved. The patient received 20 mg of protamine as reversal agent. The wound was then closed by approximately the platysma with running 3-0 Vicryl. The skin edges proximal and running subicular 5-0 Vicryl. Periincisional areas Nestabs with 18 cc of 0.5% Marcaine. Steri-Strips Telfa tape dressings applied. Sponge and instrument and needle counts were reported the surgeon be correct. Specimen plaque. Drains none. Blood loss 150 cc. She was taken to the recovery room in satisfactory condition. Gross neurologic intact. Stanley Rios M.D., F.A.C.S. Surgeon: Stanley Rios Type of Anesthesia: General and Local Anesthesiologist: Elo Hoffman
[2021-03-21] MEDS: Cefazolin 2 GM in 0.9% Normal Saline 100 ML IV (07:21)
[2021-03-21] MEDS: Heparin Injection (Vial) 5,000 UNIT/ML VIAL 5000 UNIT (07:52)
[2021-03-21] MEDS: Bupivacaine Mpf 0.5% 30 ML VIAL (09:38)
[2021-03-21 14:44] LABS: ACT Activated Clotting Time 125 sec (74-137)
[2021-03-21 14:46] LABS: ACT Activated Clotting Time 230 sec (74-137)
[2021-03-21] MEDS: Cefazolin 1 GM/50 ML BAG IV ×2 (16:18→22:31)
[2021-03-21] MEDS: Lactated Ringers 1,000 ML 30 ML IV (16:19)
[2021-03-21] MEDS: Acetaminophen 500 MG Tablet PO (21:19)
[2021-03-21] MEDS: Atorvastatin Calcium 40 MG Tablet PO (21:19)
[2021-03-21] MEDS: Carvedilol 6.25 MG Tablet PO (21:19)
--- NOTE | 2021-03-21 22:25 | CPS ---
bled in oxygen with pt's home CPAP unit at 2 lpm
[2021-03-22 00:23] VITALS: BP 139/69; PULSE 61; RESP 16; TEMP 36.4; O2SAT 94
[2021-03-22 03:59] VITALS: PULSE 63
[2021-03-22 04:15] VITALS: BP 138/68; PULSE 69; RESP 16; TEMP 36.8; O2SAT 94
[2021-03-22] MEDS: Acetaminophen 500 MG Tablet PO (05:06)
--- NOTE | 2021-03-22 05:47 | PCM.PN.SRG ---
Subjective Subjective Patient has no complaints. She is feels very well. She has essentially no pain. Objective Data Objective Data Vital Signs: Vital Signs Temp Pulse Resp BP Pulse Ox 98.2 F 69 16 138/68 H 94 03/22/21 04:15 03/22/21 04:15 03/22/21 04:15 03/22/21 04:15 03/22/21 04:15 Oxygen Flow Rate (L/min) 2 Oxygen Delivery Method CPAP Weight: 202 lb 9.677 oz Body Mass Index (BMI) 37.0 Intake & Output: Intake and Output for Last 24 Hours 03/20/21 03/21/21 03/22/21 23:59 23:59 23:59 Intake Total 1615.5 / 1865.5 615.5 / 615.5 Balance 1615.5 / 1865.5 615.5 / 615.5 Lab / Micro Data Result Diagrams: 03/16/21 15:22 03/16/21 15:22 Labs: Laboratory Results - last 24 hr 03/21/21 06:27: Activated Clotting Time 125 03/21/21 08:52: Activated Clotting Time 230 H Physical Exam Neck Neck Narrative: Neck is supple, clean dry incision left neck Neuro oriented x3 Neuro Narrative: Neuro is grossly intact. No focal deficit. No complaint of vision deficit Assessment & Plan Assessment/Plan (1) Carotid stenosis, left: (2) Amaurosis fugax of left eye: PLAN: Excellent progress, patient ready for discharge. The patient will will reinitiate all of her preoperative medications.
[2021-03-22 07:32] VITALS: O2SAT 96
[2021-03-22 07:36] VITALS: PULSE 66
[2021-03-22 07:57] VITALS: BP 134/66; PULSE 67; RESP 18; TEMP 36.7; O2SAT 93
[2021-03-22] MEDS: Aspirin E.C. 81 MG Tablet PO (08:26)
[2021-03-22] MEDS: Losartan Potassium 100 MG Tablet PO (08:26)
[2021-03-22] MEDS: amLODIPine 10 MG Tablet PO (08:27)
[2021-03-22] MEDS: Carvedilol 6.25 MG Tablet PO (08:27)
--- NOTE | 2021-03-22 10:19 | CASEMGMT ---
RN CM in to pt room for assessment, patient has left the building. Assessment unable to be completed.
== END 2021-03-22 09:52 | disposition home or self-care (01) | DRG 26 ==
LOC: ACINP 05:34 → MS3 15:04
PROVIDERS: Admitting Provider Surgery; PCP Family Medicine; Referring Provider Surgery; Visit Provider Surgery
PROC: 03C Upper Arteries, Extirpation (ICD-10-PCS; CPT 35301; principal; 2021-03-21 07:10)
DX: I65.23 Occlusion and stenosis of bilateral carotid arteries (principal); G45.3 Amaurosis fugax; I35.0 Nonrheumatic aortic (valve) stenosis; I10 Essential (primary) hypertension; M19.90 Unspecified osteoarthritis, unspecified site; K21.9 Gastro-esophageal reflux disease without esophagitis; G47.33 Obstructive sleep apnea (adult) (pediatric); E66.9 Obesity, unspecified; Z68.37 Body mass index [BMI] 37.0-37.9, adult; Z79.82 Long term (current) use of aspirin; Z79.899 Other long term (current) drug therapy; Z78.0 Asymptomatic menopausal state; Z96.642 Presence of left artificial hip joint
CPT/HCPCS: 36415; 80048; 85027; 85347; 88304; 88311; 93005; 99251; J7040; J7120; G0463; J2405

== ENCOUNTER → 2021-04-13 07:50 | Outpatient (CLI) | payer MEDICARE, SELFPAY ==
--- NOTE | 2021-04-13 07:51 | CDU_ITS ---
Reason For Study: Carotid stenosis Rt. Velocities/BP Lt. Velocities/BP Prox CCA 83.8/20 cm/sec. Prox CCA 64.3/21.3 cm/sec. Mid CCA 70.8/14.7 cm/sec. Mid CCA 52.5/17.3 cm/sec. Dist CCA 64.3/13.4 cm/sec. Dist CCA 68.2/17.3 cm/sec. Prox ICA 96.9/26.5 cm/sec. Prox ICA 104.4/26.7 cm/sec. Mid ICA 74.7/22.6 cm/sec. Mid ICA 171.7/44.8 cm/sec. Dist ICA 79.9/23.9 cm/sec. Dist ICA 128/31.4 cm/sec. Rt. ICA/CCA = 1.37. Lt. ICA/CCA = 2.67. Prox ECA 99.5/9.5 cm/sec. Prox ECA 166.5/11.1 cm/sec. Rt. Vert. 61.7/12.1 cm/sec. Lt. Vert. 70.9/20.4 cm/sec. Right Extracranial There is heterogeneous, irregular atherosclerotic plaque noted in the right common carotid artery. There is heterogeneous, irregular atherosclerotic plaque noted in the right internal carotid artery. There is homogeneous, smooth atherosclerotic plaque noted in the right external carotid artery. Antegrade flow is noted in the right vertebral artery. Left Extracranial There is homogeneous, smooth atherosclerotic plaque noted in the left common carotid artery. There is heterogeneous, irregular atherosclerotic plaque noted in the left internal carotid artery. There is heterogeneous, irregular atherosclerotic plaque noted in the left external carotid artery. Antegrade flow is noted in the left vertebral artery. Procedure Carotid Duplex 23262. This is a Carotid Duplex examination using B-mode, color flow and specral Doppler. Exam performed in department. VL/Carotid Duplex Ultrasound Interpretation Summary Irregular calcific plaque in the proximal right internal carotid artery with le ss than 50% stenosis Less than 50% stenosis right external carotid artery Postoperative changes of the left carotid bulb and proximal internal carotid ar dennis Widely patent left carotid bulb and proximal internal carotid artery with no he modynamically significant plaque with elevated velocity consistent with 50 to 69% stenosis. V elocity changes may be secondary to diameter difference between the carotid bulb and the internal c arotid with patch angioplasty Less than 50% stenosis left external carotid artery Patent and antegrade vertebral arteries bilaterally Ordering Physician: Stanley Rios Referring Physician: Joshua Maynard MD Performed By: Kym Phillips RVT
== END ==
PROVIDERS: PCP Family Medicine; Referring Provider Surgery; Visit Provider Surgery
DX: I65.23 Occlusion and stenosis of bilateral carotid arteries (principal)
CPT/HCPCS: 93880

== ENCOUNTER → 2021-12-10 | Outpatient (CLI) | payer MEDICARE, SELFPAY ==
--- NOTE | 2021-12-10 13:49 | ECHOD_ITS ---
Version 2 Reason For Study: MURMUR Procedure This was a 2D Doppler, Color Flow transthoracic echocardiogram. The study was technically difficult. Exam performed in department. Left Ventricle Normal LV size. Left ventricular systolic function is normal. Stage 1 diastolic dysfunction. The estimated ejection fraction is 60 %. No regional wall motion abnormalities noted. Right Ventricle Normal RV size. Normal systolic function. Mitral Valve Mild (1+) eccentric mitral valve insufficiency. Tricuspid Valve Normal tricuspid valve. Mild (1+) tricuspid valve insufficiency. Pulmonary artery systolic pressure is 42 mmHg. Aortic Valve Trisinus/trileaflet aortic valve. Moderate focal aortic valve calcification. Peak aortic valve gradient 26 mmHg. Mean aortic valve gradient 14 mmHg. Mild aortic stenosis. Pulmonic Valve Normal pulmonic valve. Great Vessels Normal aortic root. The pulmonary artery is normal size. Normal inferior vena cava. Pericardium/Pleural No pericardial effusion. MMode/2D Measurements & Calculations LVIDd: 4.5 cm IVSd: 1.0 cm LVOT diam: 2.0 cm LVIDs: 2.8 cm LVPWd: 1.0 cm LVOT area: 3.1 cm2 RVDd: 3.6 cm FS: 39.0 % Ao root diam: 2.9 cm LAV(MOD-bp): 74.1 ml LVAd ap4: 25.7 cm2 LAV(MOD-bp) Indexed: 38.8 ml/m2 LVLd ap4: 6.5 cm LAV(MOD-sp2): 75.9 ml EDV(MOD-sp4): 80.9 ml LAV(MOD-sp4): 71.8 ml EDV(sp4-el): 85.9 ml LVAs ap4: 13.8 cm2 LVLs ap4: 5.2 cm ESV(MOD-sp4): 30.2 ml ESV(sp4-el): 31.1 ml EF(MOD-sp4): 62.7 % EF(sp4-el): 63.8 % SV(MOD-sp4): 50.7 ml SV(sp4-el): 54.8 ml LA A4 area: 24.2 cm2 LA dimension(2D): 4.0 cm RA A4 area: 18.0 cm2 Time Measurements MV dec time: 0.23 sec Doppler Measurements & Calculations MV E max dhaval: 132.8 cm/sec Lat Peak E' Dhaval: 7.0 cm/sec Med Peak E' Dhaval: 4.8 cm/sec MV A max dhaval: 138.1 cm/sec E/E' lat: 19.0 E/E' med: 27.4 MV E/A: 0.96 MV V2 max: 160.3 cm/sec MV P1/2t max dhaval: 137.8 cm/sec Ao V2 max: 255.9 cm/sec MV max P.3 mmHg MV P1/2t: 106.7 msec Ao max P.2 mmHg MV V2 mean: 92.2 cm/sec Ao V2 mean: 177.5 cm/sec MV mean P.0 mmHg MV dec slope: 378.2 cm/sec2 Ao mean P.2 mmHg MV V2 VTI: 48.3 cm MVA(P1/2t): 2.1 cm2 Ao V2 VTI: 66.7 cm MVA(VTI): 2.2 cm2 FRANCISCO(I,D): 1.6 cm2 FRANCISCO(V,D): 1.5 cm2 LV V1 max: 126.1 cm/sec SV(LVOT): 105.0 ml PA V2 max: 96.3 cm/sec LV V1 max P.4 mmHg LV V1 mean P.1 mmHg LV V1 mean: 82.5 cm/sec LV V1 VTI: 34.1 cm TR max dhaval: 311.3 cm/sec TR max P.8 mmHg ECHO/Echo Complete Interpretation Summary Normal LV size. Left ventricular systolic function is normal. Stage 1 diastolic dysfunction. Mean aortic valve gradient 14 mmHg. Moderate focal aortic valve calcification. Mild aortic stenosis. Pulmonary artery systolic pressure is 42 mmHg. The estimated ejection fraction is 60 %. Ordering Physician: Juan Melara Referring Physician: DEBRA DOBSON Performed By: Jamee Stubbs RDCS
== END | disposition home or self-care (01) ==
LOC: CVS 13:48
PROVIDERS: PCP Family Medicine; Referring Provider Internal Medicine Cardiovascular Disease; Visit Provider Internal Medicine Cardiovascular Disease
DX: I35.0 Nonrheumatic aortic (valve) stenosis (principal)
CPT/HCPCS: 93306

== ENCOUNTER → 2022-04-09 | Outpatient (CLI) | payer MEDICARE, SELFPAY ==
--- NOTE | 2022-04-09 12:50 | CDU_ITS ---
Reason For Study: carotid stenosis Rt. Velocities/BP Lt. Velocities/BP Prox CCA 69.5/17.3 cm/sec. Prox CCA 76.0/19.9 cm/sec. Mid CCA 87.8/17.3 cm/sec. Mid CCA 77.3/27.8 cm/sec. Dist CCA 64.3/17.3 cm/sec. Dist CCA 63.0/21.2 cm/sec. Prox ICA 74.7/25.2 cm/sec. Prox ICA 110.4/40.2 cm/sec. Mid ICA 87.8/29.1 cm/sec. Mid ICA 141.0/42.3 cm/sec. Dist ICA 78.6/21.3 cm/sec. Dist ICA 123.5/37.9 cm/sec. Rt. ICA/CCA = 1.0. Lt. ICA/CCA = 1.8. Prox ECA 83.9/10.8 cm/sec. Prox ECA 440.7/47.3 cm/sec. Rt. Vert. 57.8/17.3 cm/sec. Lt. Vert. 57.2/20.6 cm/sec. Right Extracranial There is heterogeneous, irregular atherosclerotic plaque noted in the right common carotid artery. There is heterogeneous, irregular atherosclerotic plaque noted in the right internal carotid artery. There is heterogeneous, irregular atherosclerotic plaque noted in the right external carotid artery. Antegrade flow is noted in the right vertebral artery. Left Extracranial There is homogeneous, smooth atherosclerotic plaque noted in the left common carotid artery. There is homogeneous, smooth atherosclerotic plaque noted in the left internal carotid artery. There is homogeneous, smooth atherosclerotic plaque noted in the left external carotid artery. Antegrade flow is noted in the left vertebral artery. Procedure Carotid Duplex [id number]. This is a Carotid Duplex examination using B-mode, color flow and specral Doppler. The exam was diagnostic. Exam performed in department. VL/Carotid Duplex Ultrasound Interpretation Summary Minimal plaque at the proximal right internal carotid artery with less than 50% stenosis Less than 50% stenosis right external carotid artery Postoperative changes of left carotid bulb and proximal internal carotid artery with 50 to 69% stenosis based upon velocity however this may be diameter difference from the c arotid bulb to the internal carotid artery. Greater than 50% stenosis left external carotid artery Patent and antegrade vertebral arteries bilaterally No change from the previous examination of April 13, 2021 Ordering Physician: Stanley Rios Performed By: Jose Manuel Alfaro RVT
== END | disposition home or self-care (01) ==
LOC: CVS 12:50
PROVIDERS: PCP Family Medicine; Referring Provider Surgery; Visit Provider Surgery
DX: I65.22 Occlusion and stenosis of left carotid artery (principal)
CPT/HCPCS: 93880

== ENCOUNTER → 2022-05-09 | Outpatient (CLI) | payer MEDICARE, SELFPAY ==
--- NOTE | 2022-05-09 08:53 | AAAS_ITS ---
Reason For Study: Screening for AAA Aorta Measurements Aorta Doppler Measurements Proximal aorta measures2.17 x 2.19cm. in cross- Peak systolic flow velocities within the proximal sectional axis. aorta measure 89.2 cm/sec. Proximal aorta measures0.22cm. in longitudinal Peak systolic flow velocities within the mid aorta axis. measure 69.4 cm/sec. Mid aorta measures1.41 x 1.41cm. in cross- Peak systolic flow velocities within the distal sectional axis. aorta measure 89.1 cm/sec. Mid aorta measures1.44cm. in longitudinal axis. Distal aorta measures1.72 x 1.72cm. in cross- sectional axis. Distal aorta measures1.70cm. in longitudinal axis. Left Iliac Artery Left iliac artery measures 0.84 x 0.84 cm. in the cross-sectional axis. Left iliac artery measures 0.80 cm. in the longitudinal axis. Peak systolic velocity in the left iliac artery measures 97.9 cm/sec. Right Iliac Artery Right iliac artery measures 0.84 x 0.86 cm. in the cross-sectional axis. Right iliac artery measures 0.86 cm. in the longitudinal axis. Peak systolic velocity in the right iliac artery measures 78.1 cm/sec. Procedure Aorta IVC Iliac vasculature or bypass grafts 70627. Exam performed in department. VL/AAA Screening Interpretation Summary Maximal abdominal aortic diameter proximally at 2.17 x 2.19 cm. Normal aortic f low rate. Left common iliac 0.84 x 0.84 cm diameter with normal flow rate Right common iliac 0.84 x 0.86 cm diameter with normal flow rate. No evidence for abdominal aortic aneurysm Ordering Physician: Stanley Rios Referring Physician: Joshua Maynard MD Performed By: Kym Phillips RVT
== END | disposition home or self-care (01) ==
LOC: CVS 08:52
PROVIDERS: PCP Family Medicine; Referring Provider Surgery; Visit Provider Surgery
DX: Z13.6 Encounter for screening for cardiovascular disorders (principal)
CPT/HCPCS: 76706

== ENCOUNTER → 2024-03-05 | Outpatient (CLI) | payer MEDICARE, SELFPAY ==
--- NOTE | 2024-03-05 10:02 | CDU_ITS ---
Reason For Study: Carotid Stenosis Rt. Velocities/BP Lt. Velocities/BP Prox CCA 64.5/15.4 cm/sec. Prox CCA 67.9/15.1 cm/sec. Mid CCA 58.9/15.4 cm/sec. Mid CCA 74.0/21.2 cm/sec. Dist CCA 54.1/14.5 cm/sec. Dist CCA 60.5/15.1 cm/sec. Prox ICA 61.0/18.2 cm/sec. Prox ICA 82.8/22.3 cm/sec. Mid ICA 78.7/23.0 cm/sec. Mid ICA 107.2/33.5 cm/sec. Dist ICA 87.2/26.7 cm/sec. Dist ICA 115.8/24.9 cm/sec. Rt. ICA/CCA = 1.48. Lt. ICA/CCA = 1.56. Prox ECA 64.5/6.9 cm/sec. Prox ECA 230.5/33.3 cm/sec. Rt. Vert. 50.7/15.2 cm/sec. Lt. Vert. 52.5/13.8 cm/sec. Right Extracranial There is intimal thickening but no significant atherosclerotic plaque noted in the right common carotid artery. There is heterogeneous, irregular atherosclerotic plaque noted in the right internal carotid artery. There is heterogeneous, irregular atherosclerotic plaque noted in the right external carotid artery. Antegrade flow is noted in the right vertebral artery. Left Extracranial There is heterogeneous, irregular atherosclerotic plaque noted in the left common carotid artery. Anechoic structures noted within Lt Thyroid measuring approximately 0.69 x 0.93 cm and 0.85 x 0.76 cm. There is heterogeneous, irregular atherosclerotic plaque noted in the left internal carotid artery. There is homogeneous, smooth atherosclerotic plaque noted in the left external carotid artery. Antegrade flow is noted in the left vertebral artery. Procedure Carotid Duplex [id number]. This is a Carotid Duplex examination using B-mode, color flow and specral Doppler. Exam performed in department. VL/Carotid Duplex Ultrasound Interpretation Summary Mild (<50%) stenosis right extracranial internal carotid. Mild (<50%) stenosis left extracranial internal carotid. Patent and antegrade vertebrals bilaterally. Anechoic structures noted within left thyroid measuring approximately 0.69 x 0. 93 cm and 0.85 x 0.76 cm Ordering Physician: Carlos Mclean Referring Physician: Joshua Maynard MD Performed By: Pritesh Thao RVT and Student
== END | disposition home or self-care (01) ==
PROVIDERS: PCP Family Medicine; Referring Provider Surgery Trauma Surgery; Visit Provider Surgery Trauma Surgery
DX: I65.22 Occlusion and stenosis of left carotid artery (principal)
CPT/HCPCS: 93880

== ENCOUNTER → 2024-05-03 | Outpatient (CLI) | payer MEDICARE, SELFPAY ==
--- NOTE | 2024-05-03 14:12 | US_ITS ---
STUDY: THYROID ULTRASOUND REASON FOR EXAM: Female, 88 years old. Thyroid nodules TECHNIQUE: Ultrasound evaluation of the thyroid was performed with real-time and static lopez-scale imaging. COMPARISON: None. FINDINGS: RIGHT LOBE: The right lobe of the thyroid gland measures 3.6 x 1.8 cm x 1.5 cm. There is a heterogeneous echotexture. There is a 1.1 cm x 0.7 cm x 0.6 cm well-defined hypoechoic solid nodule in the superior pole. A similar appearing nodule measuring 7 mm x 7 mm x 7 mm is seen in the mid portion of the right lobe. LEFT LOBE: The left lobe of the thyroid gland measures 4.4 cm x 2.8 cm x 2.3 cm. There is a heterogeneous echotexture. There is a heterogeneous complex nodule measuring 2.9 cm x 3.1 cm x 2.3 cm in the midpole. Biopsy recommended. ISTHMUS: The isthmus measures 4 mm. The regional lymph nodes are normal. US/Thyroid IMPRESSION: There is a 2.9 cm x 3.1 cm x 2.3 cm complex solid and cystic nodule in the midportion of the left lobe of the thyroid. Biopsy is recommended. Electronically Signed: Scooter Gaston MD at 13:53 EDT ,
== END | disposition home or self-care (01) ==
PROVIDERS: PCP Family Medicine; Referring Provider Physician Assistant; Visit Provider Physician Assistant
DX: E04.1 Nontoxic single thyroid nodule (principal)
CPT/HCPCS: 76536

== ENCOUNTER → 2024-05-10 | Outpatient (CLI) | payer MEDICARE, SELFPAY ==
[2024-05-10 15:25] LABS: ALB/GLOB Ratio 1.2 RATIO (0.9-2.4); AST(SGOT) 21 U/L (15-37); Alanine Aminotransfer ALT/SGPT 21 U/L (13-56); Albumin, Serum 3.7 g/dL (3.2-5.0); Alkaline Phosphatase 135 U/L (45-117); Anion Gap 4 (5-15); BUN 33 mg/dL (7-18); BUN/Creat Ratio 23.2 RATIO (10-20); Calcium,Total 9.1 mg/dL (8.5-10.1); Chloride 113 mmol/L (98-107); Creatinine, Serum 1.42 mg/dL (0.55-1.02); EST Glomerular Filtration Rate 37 mL/min (>60); Est Glom Filt Rate - Afr Amer 45 mL/min (>60); Globulin 3.2 g/dL (2.2-4.2); Glucose 102 mg/dL (74-106); Potassium 4.6 mmol/L (3.5-5.1); Protein, Total 6.9 g/dL (6.4-8.2); Sodium Level 143 mmol/L (136-145)
== END | disposition home or self-care (01) ==
LOC: LAB 13:27
PROVIDERS: PCP Family Medicine; Referring Provider Physician Assistant; Visit Provider Physician Assistant
DX: E04.1 Nontoxic single thyroid nodule (principal)
CPT/HCPCS: 36415; 80053; 84443

== ENCOUNTER → 2024-05-24 | Outpatient (CLI) | payer MEDICARE, SELFPAY ==
--- NOTE | 2024-05-24 14:50 | FLU_PTH ---
PATHOLOGY RESULTS PATIENT: Dee SOLORIO LOC: [facility] U#:[id number] AGE/SX: 88/F ROOM: RE05/24/[address]: Dr. Mayco Harden MD : 1935 BED: DIS: 05/24/2024 SPEC #: [id number] RECD: 05/24/24 15:40 STATUS: JONY REQ #: [id number] OLGA LIDIA: 05/24/24 14:[address]: Mayco Harden DEPT: CYTOLOGY RECD BY: Aiyana Gusman ENTERED: 05/25/24 09:36 SP TYPE: Fluid OTHR DR: Dr. Joshua Maynard MD Tissues: Thyroid gland, NOS Thyroid gland, NOS Thyroid gland, NOS Procedures: Special Stain Group II Surgery Specimen Level IV Cytospin Fluid Cytology Other HEADER OPERATION: Fine needle aspiraiton of thyroid nodule PRE-OP DIAGNOSIS: Thyroid nodule TISSUE SUBMITTED: A- Left mid thyroid nodule fluid, B- Left mid thyroid slides, C- Left thyroid cyst fluid DIAGNOSIS CYTOLOGY A. Left mid thyroid fluid, fine needle aspiration (cytospin and cellblock): Negative for malignant cells. See comment. B. Left mid thyroid nodule, fine needle aspiration (smears): Consistent with benign follicular nodule, [place] Category II. Adequate for evaluation. C. Left thyroid cyst fluid, fine needle aspiration (cytospin and cellblock): Negative for malignant cells. Consistent with cyst contents. See comment. 05/26/2024 COMMENT A. This specimen consists of macrophages and a few benign follicular cells. C. This specimen predominantly consists of macrophages. Correlation with clinical, radiologic findings and appropriate follow up are necessary. The [place] System for thyroid diagnostic categorization was used in the evaluation of this case. Case has been reviewed in consultation with Dr. Monteiro who concurs with the above diagnosis. IDC:AM CYTOLOGY STUDY Slides are reviewed. CYTOLOGY GROSS A. Received is 30 ml of red-cloudy fluid labeled with the patient's name and and designated per the requisition as Left mid thyroid nodule. Submitted for cytology preparation including cell block. B. Received are 4 smears labeled with the patient's name and designated per the requisition as Left mid thyroid nodule. Submitted for staining. C. Received is 4.0 ml of brown cloudy fluid labeled with the patient's name and and designated per the requisition as Left thyroid cyst fluid. Submitted for cytology preparation including cell block. Mr 05/25/2024 TC:5 CPT: [id number]
== END | disposition home or self-care (01) ==
LOC: LABSPEC 15:48
PROVIDERS: PCP Family Medicine; Referring Provider Surgery; Visit Provider Surgery
DX: E04.1 Nontoxic single thyroid nodule (principal)
CPT/HCPCS: 88108; 88161; 88305; 88313

== ENCOUNTER → 2024-06-18 | Outpatient (CLI) | payer MEDICARE, SELFPAY ==
--- NOTE | 2024-06-18 13:49 | ECHOD_ITS ---
Reason For Study: MURMUR Procedure This was a 2D Doppler, Color Flow transthoracic echocardiogram. Exam performed in department. Left Ventricle Normal LV size. Mild concentric left ventricular hypertrophy. Left ventricular systolic function is normal. The left ventricular ejection fraction is 70 %. No regional wall motion abnormalities noted. Right Ventricle Normal RV size. Normal systolic function. Atria The left atrium is mildly enlarged. Normal right atrium. Mitral Valve There is moderate to severe mitral annular calcification. Mild (1+) eccentric mitral valve insufficiency. Tricuspid Valve Normal tricuspid valve. Aortic Valve Trisinus/trileaflet aortic valve. Mild focal aortic valve calcification. Pulmonic Valve Normal pulmonic valve. Great Vessels Calcified aortic root. The pulmonary artery is normal size. Inferior vena cava collapse with respiration. Pericardium/Pleural No pericardial effusion. MMode/2D Measurements & Calculations LVIDd: 4.3 cm IVSd: 1.2 cm LVOT diam: 1.7 cm LVIDs: 2.4 cm LVPWd: 1.4 cm LVOT area: 2.2 cm2 RVDd: 2.5 cm FS: 44.4 % Ao root diam: 2.9 cm asc Aorta Diam: 3.4 cm LAV(MOD-bp): 57.7 ml LAV(MOD-bp) Indexed: 30.3 ml/m2 LAV(MOD-sp2): 52.3 ml LAV(MOD-sp4): 62.1 ml SV(MOD-sp4): 34.3 ml SV(sp4-el): 35.0 ml LVAd ap4: 18.8 cm2 LVLd ap4: 6.6 cm SI(MOD-sp4): 18.0 ml/m2 EDV(MOD-sp4): 44.9 ml EDV(sp4-el): 45.4 ml LVAs ap4: 7.8 cm2 LVLs ap4: 5.0 cm ESV(MOD-sp4): 10.6 ml ESV(sp4-el): 10.4 ml EF(MOD-sp4): 76.4 % EF(sp4-el): 77.1 % LA A4 area: 22.3 cm2 LA dimension(2D): 4.0 cm RA A4 area: 8.2 cm2 TAPSE: 2.0 cm Time Measurements MV dec time: 0.31 sec Doppler Measurements & Calculations MV E max dhaval: 98.2 cm/sec Lat Peak E' Dhaval: 6.8 cm/sec Med Peak E' Dhaval: 5.3 cm/sec MV A max dhaval: 112.7 cm/sec E/E' lat: 14.5 E/E' med: 18.6 MV E/A: 0.87 MV V2 max: 126.9 cm/sec Ao V2 max: 230.9 cm/sec MV max P.5 mmHg MV dec slope: 313.2 cm/sec2 Ao max P.4 mmHg MV V2 mean: 78.5 cm/sec Ao V2 mean: 153.5 cm/sec MV mean P.8 mmHg Ao mean P.7 mmHg MV V2 VTI: 43.2 cm Ao V2 VTI: 49.2 cm AV (velocity ratio): 0.85 MVA(VTI): 2.2 cm2 FRANCISCO(I,D): 1.9 cm2 FRANCISCO(V,D): 1.7 cm2 LV V1 max: 170.7 cm/sec SV(LVOT): 93.7 ml PA V2 max: 94.2 cm/sec LV V1 max P.7 mmHg PA V2 mean: 63.2 cm/sec LV V1 mean P.0 mmHg LV V1 mean: 126.4 cm/sec LV V1 VTI: 41.9 cm TR max dhaval: 285.7 cm/sec TR max P.6 mmHg ECHO/Echo Complete Interpretation Summary Normal LV size. The left ventricular ejection fraction is 70 %. Mild concentric left ventricular hypertrophy. Left ventricular systolic function is normal. Mild focal aortic valve calcification. There is moderate to severe mitral annular calcification. Ordering Physician: Irene Connolly Referring Physician: Irene Connolly Performed By: Minerva Landis RCS
== END | disposition home or self-care (01) ==
LOC: CVS 13:48
PROVIDERS: PCP Family Medicine; Referring Provider Physician Assistant Medical; Visit Provider Physician Assistant Medical
DX: I35.0 Nonrheumatic aortic (valve) stenosis (principal); R01.1 Cardiac murmur, unspecified
CPT/HCPCS: 93306